=== PATIENT | male | born 1940 | race Caucasian/White ===

== ENCOUNTER 2017-01-02 15:46 | Emergency (ER) | payer OTHER, BC ==
--- NOTE | 2017-01-02 15:51 | EDPHY ---
H & P HPI/ROS: CHIEF COMPLAINT: Suicidal Ideation, M1 Hold HISTORY OF PRESENT ILLNESS: The patient is a deaf 76 year male arriving today via EMS from [facility] on an M1 hold for suicidal ideation. Per EMS, he wrote down that he was unhappy and had plans to take his life. M1 paperwork states he was on his way to the bus station and had made threats to staff at [facility] to take the bus to [place] where he could access a gun in order to kill himself. Staff reported he has threatened cutting his wrists, throat, and stomach as well. [facility] staff at bedside reports he has had intermittent depression and suicidal threats since arriving at [facility]. He has a history of depression, possible dementia, and COPD. HPI partially obtained by multi slide machine tender (commercial credit officer at [facility]) and from M1 paperwork. REVIEW OF SYSTEMS: Constitutional: No fever, no chills Eyes: No visual changes ENT: No sore throat Respiratory: No cough, no shortness of breath Cardiac: No chest pain Gastrointestinal: No nausea, no vomiting, no abdominal pain Genitourinary: No hematuria, no dysuria Musculoskeletal: No leg pain or swelling Skin: No rash Neurological: No headache, no numbness, no weakness Psychiatric: As in HPI Past Medical/Surgical History: COPD, Depression, Deaf, Hypertension (unclear if currently taking medication). Social History: Lives at [facility]. Daughters live in [place] and [place]. Has never smoked. Physical Exam: General Appearance: Alert, no distress Eyes: Pupils equal and round, no conjunctival pallor or injection ENT, Mouth: Deaf, Mucous membranes moist Neck: Normal inspection Respiratory: Lungs are clear to auscultation Cardiovascular: Regular rate and rhythm Gastrointestinal: Abdomen is soft and non- tender Neurological: A&O, nonfocal, normal gait Skin: Warm and dry, no rash Extremities: Nontender, no pedal edema Psychiatric: Appears angry Constitutional: Initial Vital Signs Temperature (C) 36.9 C 01/02/17 15:56 Heart Rate 78 01/02/17 15:56 Respiratory Rate 16 01/02/17 15:56 Blood Pressure 171/100 H 01/02/17 15:56 O2 Sat (%) 94 01/02/17 15:56 O2 Delivery Mode Room Air Allergies/Adverse Reactions: No Known Allergies Allergy (Verified 01/02/17 15:55) Home Medications: Medication Instructions Recorded 2 Htn Medicines 01/25/11 Prostate Med 01/25/11 Tamsulosin HCl [Flomax] mg PO DAILY8 01/25/11 Medical Decision Making ED Course/Re-evaluation: 15:48 Took EMS report at bedside. This is a deaf 76 year old male on M1 hold for suicidal ideation. Police placed him on M1 hold when he was found at a bus stop, reportedly planning to travel to [place] to acquire a gun and shoot himself. [facility] staff reports he has made suicidal statements often for years, but has no prior attempts. On presentation he appears angry, but is otherwise alert and stable. Denies SI. Will proceed with labs and UA for medical clearance prior to mental health evaluation. multi slide machine tender en route. Labs obtained. Hypokalemic at 3.1 Will administer 20 meq PO KCl. Tox screen was negative. Plan to proceed with mental evaluation. fur floor worker on staff feels that the patient is not acutely suicidal and is stable for discharge back to [facility]. I agree with this. The patient will be removed from M1 hold at 17:30. The patient was discharged back to [facility] with strict return precautions and instructions for mental health follow-up. Differential Diagnosis: The differential diagnosis for the patient's depression included but was not limited to functional and major depression, situational depression, medication side effect, drugs, and alcohol abuse. - Data Points Laboratory Results: Laboratory Results 01/02/17 16:35 01/02/17 16:35 01/02/17 01/02/17 01/02/17 16:35 16:35 16:14 WBC 8.91 10^3/uL 10^3/uL (3.80-9.50) RBC 4.69 10^6/uL 10^6/uL (4.40-6.38) Hgb 14.3 g/dL g/dL (13.7-17.5) Hct 42.3 % % (40.0-51.0) MCV 90.2 fL fL (81.5-99.8) MCH 30.5 pg pg (27.9-34.1) MCHC 33.8 g/dL g/dL (32.4-36.7) RDW 14.1 % % (11.5-15.2) Plt Count 171 10^3/uL 10^3/uL (150-400) MPV 10.1 fL fL (8.7-11.7) Neut % (Auto) 72.0 % % (39.3-74.2) Lymph % (Auto) 16.4 % % (15.0-45.0) [place] % (Auto) 7.4 % % (4.5-13.0) Eos % (Auto) 2.9 % % (0.6-7.6) Baso % (Auto) 1.0 % % (0.3-1.7) Nucleat RBC Rel Count 0.0 % % (0.0-0.2) Absolute Neuts (auto) 6.41 10^3/uL 10^3/uL (1.70-6.50) Absolute Lymphs (auto) 1.46 10^3/uL 10^3/uL (1.00-3.00) Absolute Monos (auto) 0.66 10^3/uL 10^3/uL (0.30-0.80) Absolute Eos (auto) 0.26 10^3/uL 10^3/uL (0.03-0.40) Absolute Basos (auto) 0.09 10^3/uL 10^3/uL (0.02-0.10) Absolute Nucleated RBC 0.00 10^3/uL 10^3/uL (0-0.01) Immature Gran % 0.3 % % (0.0-1.1) Immature Gran # 0.03 10^3/uL 10^3/uL (0.00-0.10) Sodium 143 mEq/L mEq/L (134-144) Potassium 3.1 mEq/L L mEq/L (3.5-5.2) Chloride 107 mEq/L mEq/L (97-110) Carbon Dioxide 25 mEq/l mEq/l (22-31) Anion Gap 11 mEq/L mEq/L (8-16) BUN 25 mg/dL H mg/dL (7-23) Creatinine 1.2 mg/dL mg/dL (0.7-1.3) Estimated GFR 59 Glucose 114 mg/dL H mg/dL (70-100) Calcium 9.8 mg/dL mg/dL (8.5-10.4) Urine Opiates Screen NEGATIVE (NEGATIVE) Urine Barbiturates NEGATIVE (NEGATIVE) Ur Phencyclidine Scrn NEGATIVE (NEGATIVE) Ur Amphetamine Screen NEGATIVE (NEGATIVE) U Benzodiazepines Scrn NEGATIVE (NEGATIVE) Urine Cocaine Screen NEGATIVE (NEGATIVE) U Marijuana (THC) Screen NEGATIVE (NEGATIVE) Ethyl Alcohol < 10 mg/dL mg/dL (0-10) Medications Given: Discontinued Medications Potassium Chloride (Klor-Con) 20 meq PO EDNOW ONE Stop: 01/02/17 17:10 Last Admin: 01/02/17 17:48 Dose: Not Given Departure - Departure Disposition: Home, Routine, Self-Care Clinical Impression: Suicidal ideation Condition: Good Instructions: Depression (ED), Suicide Prevention for Older Adults (ED) Additional Instructions: 1. Return to the Emergency Department if you feel as though you might hurt yourself or others, feel anxious, or for other serious concerns. Referrals: RASHID BEAULIEU [Primary Care Provider] - As per Instructions Report Scribed for: Shira De Santiago Report Scribed by: Subha Robbins Date of Report: 01/02/17 Time of Report: 16:08 Physician Review and Approval Statement: 01/02/17 16:13 Portions of this note were transcribed by a medical records custodian. I personally performed a history, physical exam, medical decision making, and confirmed accuracy of information the transcribed note.
[2017-01-02 16:04] VITALS: TEMP 98.4; O2SAT 94
[2017-01-02 16:48] LABS: % IMMATURE GRANULYOCYTES 0.3 % (0.0-1.1); ABSOLUTE IMMATURE GRANULOCYTES 0.03 10^3/uL (0.00-0.10); ADD DIFF? NO; ADD MORPH? NO; ADD SCAN? NO; ATYPICAL LYMPHOCYTE FLAG 20 (0-99); FRAGMENT RBC FLAG 0 (0-99); HEMATOCRIT 42.3 % (40.0-51.0); HEMOGLOBIN 14.3 g/dL (13.7-17.5); LEFT SHIFT FLG 0 (0-99); LIPEMIA HEMOLYSIS FLAG 90 (0-99); MEAN CELL HEMOGLOBIN 30.5 pg (27.9-34.1); MEAN CELL HEMOGLOBIN CONCENTR. 33.8 g/dL (32.4-36.7); MEAN CELL VOLUME 90.2 fL (81.5-99.8); MEAN PLATELET VOLUME 10.1 fL (8.7-11.7); PLATELET CLUMPS FLAG 0 (0-99); PLATELET COUNT 171 10^3/uL (150-400); RED BLOOD CELL COUNT 4.69 10^6/uL (4.40-6.38); RED CELL DISTRIBUTION WIDTH 14.1 % (11.5-15.2)
[2017-01-02 17:02] LABS: ANION GAP 11 mEq/L (8-16); CALCIUM 9.8 mg/dL (8.5-10.4); CARBON DIOXIDE 25 mEq/l (22-31); CHLORIDE 107 mEq/L (97-110); CREATININE 1.2 mg/dL (0.7-1.3); ETHANOL SERUM < 10 mg/dL (0-10); GLOMERULAR FILTRATION RATE 59; GLUCOSE 114 mg/dL (70-100); POTASSIUM 3.1 mEq/L (3.5-5.2); SODIUM 143 mEq/L (134-144)
[2017-01-02] MEDS ORDERED: POTASSIUM CL 20 MEQ TAB PO ONE (17:09)
[2017-01-02 18:02] VITALS: BP 150/90; PULSE 80; RESP 14
== END 2017-01-02 18:01 | disposition home or self-care (01) ==
LOC: EDUNIT#
DX: R45.851 Suicidal ideations (principal); J44.9 Chronic obstructive pulmonary disease, unspecified; I10 Essential (primary) hypertension
CPT/HCPCS: 80305; G0480

== ENCOUNTER 2017-04-07 09:20 | Emergency (ER) | payer BC, OTHER ==
[2017-04-07] MEDS ORDERED: LIDOCAINE 2% JELLY 20 ML (UROJECT) ONE (09:52)
--- NOTE | 2017-04-07 09:52 | EDPHY ---
HPI/HX/ROS/PE/MDM Narrative: CHIEF COMPLAINT: Urinary retention HISTORY OF PRESENT ILLNESS: The patient is a [id number] 77 y/o male arriving from [facility], who presents with urinary retention since last night. He has a history of BPH and has required catheterization in the past. The last time he urinated was before he went to bed last night. He has suprapubic pain that is aggravated by lying down and mildly alleviated while standing. He denies vomiting and fever. History obtained via writing as well as interior design program chair. REVIEW OF SYSTEMS: Limitied dure to initial communication barrier. PAST MEDICAL HISTORY: COPD, dementia, hypertension, GERD, BPH, depression SOCIAL HISTORY: Resides at [facility], [place] and Medicaid, PCP: Dr. Aissatou Leon Prior medical records reviewed including [facility] paperwork that was transported with patient today. VITAL SIGNS: Reviewed by me GENERAL: Elderly, thin, standing, in obvious discomfort, and non-verbal. HEENT: Atraumatic. Eyes: No icterus, no injection. Mouth: moist mucous membranes. No erythema or lesions. Neck: supple with no adenopathy. LUNGS: Clear to auscultation bilaterally, no wheezes, rhonchi or rales. CARDIAC: Irregular rate and rhythm, no rubs, murmurs or gallops. ABDOMEN: Tenderness and distension over bladder, soft, bowel sounds normal. No guarding or rebound. Bladder palpable above pubic symphysis. BACK: No CVA tenderness. EXTREMITIES: No trauma. No edema. Range of motion is normal throughout. NEURO: Alert and able to follow commands and write, grossly nonfocal. SKIN: Warm and dry, no rash. PSYCHIATRIC: Normal mentation, no agitation. Portions of this note were transcribed by a biomedical service engineer. I personally performed a history, physical exam, medical decision making, and confirmed accuracy of information the transcribed note. ED Course: The patient is a 77 y/o male who presents with a one day history of urinary retention. Plan on a catheter to empty bladder and UA, patient agrees to catheter. interior design program chair is on her way. [id number]: Reassessed patient and discussed work up. He is feeling significantly improved. His UA indicates possible UTI so he will be discharged with Keflex. I' ve recommended keeping the catheter in place until follow up with a urologist in 1-2 days. He agrees to this follow up plan. Return precautions given. interior design program chair present to discuss workup as well as my recommendations and to answer his questions. MDM: diff dx for patients urinary retention was considered including UTI, BPH, medication effects, bladder outlet pathology, renal failure. - Data Points Laboratory Results: Laboratory Results 04/07/17 09:30 04/07/17 09:30 Medications Given: Discontinued Medications Cephalexin HCl (Keflex) 500 mg PO EDNOW ONE PRN Reason: Protocol Stop: 04/07/17 12:16 Last Admin: 04/07/17 12:26 Dose: 500 mg Microbiology Results: MICROBIOLOGY 04/07/17 11:30 Urine,Clean Catch Urine Culture - Final General Time Seen by Provider: 04/07/17 09:44 Initial Vital Signs: Initial Vital Signs Temperature (C) 37 C 04/07/17 09:20 Heart Rate 88 04/07/17 09:20 Respiratory Rate 19 04/07/17 09:20 Blood Pressure 169/102 H 04/07/17 09:20 O2 Sat (%) 92 04/07/17 09:20 O2 Delivery Mode Room Air Allergies/Adverse Reactions: No Known Allergies Allergy (Verified 01/02/17 15:55) Home Medications: Medication Instructions Recorded 2 Htn Medicines 01/25/11 Prostate Med 01/25/11 Tamsulosin HCl [Flomax] mg PO DAILY8 01/25/11 Cephalexin [Keflex (RX)] 500 mg PO TID 6 Days 04/07/17 Departure - Departure Disposition: Home, Routine, Self-Care Clinical Impression: Urinary retention Condition: Good Instructions: Urinary Retention in Men (ED), Martinez Catheter Placement and Care (ED) Additional Instructions: 1. Keep your Martinez catheter in place until follow up with urologist. 2. Follow up with your urologist within the next two days. You've been referred to Dr. Webb if needed. 3. Return to the ED for severe pain, inability to empty your bladder, fever, or other worsening symptoms. 4. Take Keflex as prescribed. Be sure to complete entire prescription. Referrals: Patient,NotPresent [Unknown] - As per Instructions Hiram Webb MD [Medical Doctor] - As per Instructions Prescriptions: Cephalexin [Keflex (RX)] 500 mg PO TID 6 Days Report Scribed for: Cary Garcia Report Scribed by: Dana Stevenson Date of Report: 04/07/17 Time of Report: 10:05
[2017-04-07 10:15] VITALS: O2SAT 92
[2017-04-07 10:55] LABS: % IMMATURE GRANULYOCYTES 0.5 % (0.0-1.1); ABSOLUTE IMMATURE GRANULOCYTES 0.07 10^3/uL (0.00-0.10); ADD DIFF? NO; ADD MORPH? NO; ADD SCAN? NO; ATYPICAL LYMPHOCYTE FLAG 0 (0-99); FRAGMENT RBC FLAG 0 (0-99); HEMATOCRIT 45.8 % (40.0-51.0); HEMOGLOBIN 15.5 g/dL (13.7-17.5); LEFT SHIFT FLG 0 (0-99); LIPEMIA HEMOLYSIS FLAG 90 (0-99); MEAN CELL HEMOGLOBIN 30.8 pg (27.9-34.1); MEAN CELL HEMOGLOBIN CONCENTR. 33.8 g/dL (32.4-36.7); MEAN CELL VOLUME 91.1 fL (81.5-99.8); MEAN PLATELET VOLUME 10.8 fL (8.7-11.7); PLATELET CLUMPS FLAG 10 (0-99); PLATELET COUNT 212 10^3/uL (150-400); RED BLOOD CELL COUNT 5.03 10^6/uL (4.40-6.38); RED CELL DISTRIBUTION WIDTH 13.6 % (11.5-15.2)
[2017-04-07 10:59] LABS: ANION GAP 17 mEq/L (8-16); CARBON DIOXIDE 21 mEq/l (22-31); CHLORIDE 106 mEq/L (97-110); CREATININE 1.1 mg/dL (0.7-1.3); GLOMERULAR FILTRATION RATE > 60; GLUCOSE 151 mg/dL (70-100); POTASSIUM 3.6 mEq/L (3.5-5.2); SODIUM 144 mEq/L (134-144)
[2017-04-07 11:51] LABS: COLOR RED; LEUKOCYTE ESTERASE,URINE NEGATIVE (NEGATIVE); NITRITE,URINE NEGATIVE (NEGATIVE)
[2017-04-07 11:56] LABS: MUCUS TRACE /lpf (NONE-1+); RBC,URINE 50-182 /hpf (0-3)
[2017-04-07] MEDS ORDERED: CEPHALEXIN 500 MG CAP PO ONE (12:15)
[2017-04-07 13:37] VITALS: BP 145/76; PULSE 78; RESP 16; TEMP 97.9
== END 2017-04-07 13:35 | disposition home or self-care (01) ==
LOC: EDUNIT#
DX: R33.9 Retention of urine, unspecified (principal); I10 Essential (primary) hypertension; J44.9 Chronic obstructive pulmonary disease, unspecified

== ENCOUNTER 2017-05-21 19:25 | Emergency (ER) | payer OTHER ==
--- NOTE | 2017-05-21 19:31 | EDPHY ---
H & P Time Seen by Provider: 05/21/17 19:28 HPI/ROS: CHIEF COMPLAINT: Mild confusion HISTORY OF PRESENT ILLNESS: The patient presents to the emergency department via paramedics from [facility] with a reported history of increasing confusion and mild agitation. The patient is deaf. Patient also has a history of mild dementia. In reviewing his records he was seen in the emergency department approximately 6 weeks ago with a similar presentation. At that point time he was noted to have a possible urinary tract infection however his urine culture demonstrated no obvious bacterial growth. There has been no history of fever, vomiting, diarrhea, acute trauma or other significant abnormality reported to nursing staff by paramedics. REVIEW OF SYSTEMS: A comprehensive 10 point review of systems is otherwise negative aside from elements mentioned in the history of present illness. Source: Patient, Old records Exam Limitations: Clinical condition - Medical/Surgical History Hx Asthma: No Hx Chronic Respiratory Disease: No Hx Diabetes: No Hx Cardiac Disease: No Hx Renal Disease: No Hx Cirrhosis: No Hx Alcoholism: No Hx HIV/AIDS: No Hx Splenectomy or Spleen Trauma: No Other PMH: HTN, early dementia and pt is deaf - Social History Smoking Status: Heavy smoker - Physical Exam Exam: General Appearance: Elderly male, no acute distress Eyes: Pupils equal and round no pallor or injection ENT, Mouth: Dry mucous membranes Respiratory: There are no retractions, lungs are clear to auscultation Cardiovascular: Regular rate and rhythm Gastrointestinal: Abdomen is soft and nontender, no masses, bowel sounds normal Neurological: 5/5 strength noted all 4 extremities, chronically deaf Skin: Warm and dry, no rashes Musculoskeletal: Neck is supple nontender Extremities: symmetrical, full range of motion Psychiatric: Cooperative, non agitated Constitutional: Initial Vital Signs Temperature (C) 36.9 C 05/21/17 19:54 Heart Rate 93 05/21/17 19:54 Respiratory Rate 18 05/21/17 19:54 Blood Pressure 153/77 H 05/21/17 19:54 O2 Sat (%) 93 05/21/17 19:54 O2 Delivery Mode Room Air Allergies/Adverse Reactions: No Known Allergies Allergy (Verified 01/02/17 15:55) Home Medications: Medication Instructions Recorded 2 Htn Medicines 01/25/11 Prostate Med 01/25/11 Tamsulosin HCl [Flomax] mg PO DAILY8 01/25/11 Cephalexin [Keflex (RX)] 500 mg PO TID 6 Days cap 04/07/17 Medical Decision Making ED Course/Re-evaluation: Through the use of a tool and die designer the patient informs me that he was agitated with staff that he could not receive a meal at his [facility] facility. The patient was given a meal in the emergency department and is feeling much better. He would like to be discharged back to his SNF. The patient has stable vital signs. His urine dipstick demonstrates no evidence of an acute infection. The patient's CBC and serum chemistries are within normal limits. At this point time I doubt the patient is presenting with acute delirium or psychosis. I do feel the patient can be discharged back to his [facility] facility. Differential Diagnosis: Differential diagnosis considered includes urinary tract infection, dehydration , metabolic abnormality, psychosis, delirium - Data Points Laboratory Results: Laboratory Results 05/21/17 19:52 05/21/17 19:52 05/21/17 05/21/17 05/21/17 19:52 19:52 19:52 WBC 8.47 10^3/uL 10^3/uL (3.80-9.50) RBC 4.77 10^6/uL 10^6/uL (4.40-6.38) Hgb 14.9 g/dL g/dL (13.7-17.5) Hct 43.8 % % (40.0-51.0) MCV 91.8 fL fL (81.5-99.8) MCH 31.2 pg pg (27.9-34.1) MCHC 34.0 g/dL g/dL (32.4-36.7) RDW 14.5 % % (11.5-15.2) Plt Count 163 10^3/uL 10^3/uL (150-400) MPV 9.9 fL fL (8.7-11.7) Neut % (Auto) 72.3 % % (39.3-74.2) Lymph % (Auto) 18.3 % % (15.0-45.0) [place] % (Auto) 8.0 % % (4.5-13.0) Eos % (Auto) 0.4 % L % (0.6-7.6) Baso % (Auto) 0.6 % % (0.3-1.7) Nucleat RBC Rel Count 0.0 % % (0.0-0.2) Absolute Neuts (auto) 6.13 10^3/uL 10^3/uL (1.70-6.50) Absolute Lymphs (auto) 1.55 10^3/uL 10^3/uL (1.00-3.00) Absolute Monos (auto) 0.68 10^3/uL 10^3/uL (0.30-0.80) Absolute Eos (auto) 0.03 10^3/uL 10^3/uL (0.03-0.40) Absolute Basos (auto) 0.05 10^3/uL 10^3/uL (0.02-0.10) Absolute Nucleated RBC 0.00 10^3/uL 10^3/uL (0-0.01) Immature Gran % 0.4 % % (0.0-1.1) Immature Gran # 0.03 10^3/uL 10^3/uL (0.00-0.10) Sodium 142 mEq/L mEq/L (134-144) Potassium 3.6 mEq/L mEq/L (3.5-5.2) Chloride 104 mEq/L mEq/L (97-110) Carbon Dioxide 25 mEq/l mEq/l (22-31) Anion Gap 13 mEq/L mEq/L (8-16) BUN 32 mg/dL H mg/dL (7-23) Creatinine 1.2 mg/dL mg/dL (0.7-1.3) Estimated GFR 58 Glucose 104 mg/dL H mg/dL (70-100) Calcium 10.0 mg/dL mg/dL (8.5-10.4) Urine Color YELLOW Urine Appearance CLEAR Urine pH 6.0 (5.0-7.5) Ur Specific [place] 1.015 (1.002-1.030) Urine Protein 1+ H (NEGATIVE) Urine Ketones NEGATIVE (NEGATIVE) Urine Blood NEGATIVE (NEGATIVE) Urine Nitrate NEGATIVE (NEGATIVE) Urine Bilirubin NEGATIVE (NEGATIVE) Urine Urobilinogen NEGATIVE EU EU (0.2-1.0) Ur Leukocyte Esterase NEGATIVE (NEGATIVE) Urine RBC 3-5 /hpf H /hpf (0-3) Urine WBC 1-3 /hpf /hpf (0-3) Ur Epithelial Cells TRACE /lpf /lpf (NONE-1+) Urine Glucose NEGATIVE (NEGATIVE) Departure - Departure Disposition: Home, Routine, Self-Care Clinical Impression: Dementia Condition: Good Instructions: Dementia (ED) Additional Instructions: 1. Please return to the emergency department for any fever, vomiting, pain or other concerns. 2. Please follow up with your primary care provider as scheduled. 3. The testing in the emergency department today demonstrates no evidence of urinary retention or a urinary tract infection. Your laboratory tests including CBC and serum chemistries are within normal limits. Referrals: Patient,NotPresent [Unknown] - As per Instructions
[2017-05-21 19:56] VITALS: TEMP 98.4
[2017-05-21 20:03] LABS: % IMMATURE GRANULYOCYTES 0.4 % (0.0-1.1); ABSOLUTE IMMATURE GRANULOCYTES 0.03 10^3/uL (0.00-0.10); ADD DIFF? NO; ADD MORPH? NO; ADD SCAN? NO; ATYPICAL LYMPHOCYTE FLAG 0 (0-99); COLOR YELLOW; FRAGMENT RBC FLAG 0 (0-99); HEMATOCRIT 43.8 % (40.0-51.0); HEMOGLOBIN 14.9 g/dL (13.7-17.5); LEFT SHIFT FLG 0 (0-99); LEUKOCYTE ESTERASE,URINE NEGATIVE (NEGATIVE); LIPEMIA HEMOLYSIS FLAG 90 (0-99); MEAN CELL HEMOGLOBIN 31.2 pg (27.9-34.1); MEAN CELL VOLUME 91.8 fL (81.5-99.8); MEAN PLATELET VOLUME 9.9 fL (8.7-11.7); NITRITE,URINE NEGATIVE (NEGATIVE); PLATELET CLUMPS FLAG 10 (0-99); PLATELET COUNT 163 10^3/uL (150-400); RED BLOOD CELL COUNT 4.77 10^6/uL (4.40-6.38); RED CELL DISTRIBUTION WIDTH 14.5 % (11.5-15.2)
[2017-05-21 20:13] LABS: ANION GAP 13 mEq/L (8-16); CARBON DIOXIDE 25 mEq/l (22-31); CHLORIDE 104 mEq/L (97-110); CREATININE 1.2 mg/dL (0.7-1.3); GLOMERULAR FILTRATION RATE 58; GLUCOSE 104 mg/dL (70-100); POTASSIUM 3.6 mEq/L (3.5-5.2); SODIUM 142 mEq/L (134-144)
[2017-05-21 20:56] VITALS: BP 155/88; PULSE 78; RESP 20; O2SAT 94
== END 2017-05-21 21:29 | disposition home or self-care (01) ==
LOC: EDUNIT#
DX: F03.90 Unspecified dementia, unspecified severity, without behavioral disturbance, psychotic disturbance, mood disturbance, and anxiety (principal); F17.200 Nicotine dependence, unspecified, uncomplicated; I10 Essential (primary) hypertension

== ENCOUNTER 2017-06-12 16:16 | Inpatient (IN) | payer OTHER ==
--- NOTE | 2017-06-12 16:27 | EDPHY ---
H & P Time Seen by Provider: 06/12/17 16:25 HPI/ROS: CHIEF COMPLAINT: Fell twice today HISTORY OF PRESENT ILLNESS: Patient is a resident of [facility] with a history of dementia and prostatic hypertrophy. He is brought in today because he fell twice. Patient is deaf and communicates by writing. He currently has no complaints. He specifically denies any pain, cough, shortness of breath, abdominal pain or vomiting or diarrhea. REVIEW OF SYSTEMS: Further history and review of systems is limited by the patient's deafness, but generally denies any medical complaints or traumatic injury. PAST MEDICAL HISTORY: Includes dementia, prostatic hypertrophy, hypertension, COPD, GERD Social history: [facility] resident General Appearance: Alert and conversant, cooperative. Eyes: No scleral icterus. ENT, Mouth: Normal mucous membranes. Respiratory: Normal respiratory effort, breath sounds equal, lungs are clear to auscultation. Cardiovascular: Regular rate and rhythm. Gastrointestinal: Abdomen is soft and non tender. Neurological: Patient is alert and follows commands. Communicates by writing. Face symmetric, normal movement and sensation in all extremities. Skin: Warm and dry, no rashes. Musculoskeletal: No spinal or extremity tenderness or deformity. No external evidence of head trauma. Psychiatric: Not agitated, but unable because he is nonverbal. Emergency Department course/MDM: Temperature 37.9degrees. Labs, lactate, urinalysis, chest x-ray. Discussed with Dr. Martinez at 1656, [facility]. She requests keep at [facility] for admission tonight, admission for IV antibiotics with UTI and new gait instability. 1725: Head CT negative for trauma per Wagner, chest x-ray negative for pneumonia personally reviewed by myself. Sepsis but not severe sepsis. IV fluids and ceftriaxone 1g, observation admission. Patient is prescribed Klonopin, 0.5 mg orally and 5 mg oral Zyprexa. Right now he is alert and ambulatory and a little bit agitated. I think he has clear dementia and although he seems upset about admission I do not think he has capacity to make decisions about being discharged and he is full cor. Smoking Status: Heavy smoker Constitutional: Initial Vital Signs Temperature (C) 37.8 C 06/12/17 17:20 Heart Rate 87 06/12/17 17:20 Respiratory Rate 16 06/12/17 17:20 Blood Pressure 158/91 H 06/12/17 17:20 O2 Sat (%) 92 06/12/17 17:20 O2 Delivery Mode Room Air Allergies/Adverse Reactions: iodine Allergy (Verified 06/12/17 17:47) Home Medications: Medication Instructions Recorded Acetaminophen [Tylenol 325mg (*)] 650 mg PO Q6 PRN 06/12/17 Albuterol [Proventil Inhaler HFA 2 puffs IH Q4H PRN 06/12/17 (*)] Cholecalciferol Vit D3 [Vitamin D3 1,000 units PO DAILY 06/12/17 (*)] Escitalopram Oxalate [Lexapro] 10 mg PO DAILY 06/12/17 Finasteride [Proscar 5 MG (*)] 5 mg PO DAILY 06/12/17 Propranolol HCl 80 mg PO BID 06/12/17 SUMAtriptan [Imitrex 50 MG (*)] 50 mg PO DAILY PRN 06/12/17 Sennosides [Senokot 8.6mg (OTC)] 1 each PO BID PRN 06/12/17 Tiotropium Inhaler [Spiriva 1 inh IH DAILY 06/12/17 Inhaler] clonazePAM [Klonopin (*)] 0.5 mg PO HS 06/12/17 clonazePAM [Klonopin (*)] 0.5 mg PO Q8 PRN 06/12/17 traZODone [traZODONE 50MG (*)] 50 mg PO HS 06/12/17 Medical Decision Making - Diagnostics Imaging Results: Imaging Impressions Chest X-Ray 06/12/17 16:25 Impression: There is no focal infiltrate identified. Head CT 06/12/17 16:28 Impression:1. No acute posttraumatic abnormality identified. 2. Severe cerebral atrophy with extensive likely chronic white matter disease and multiple old lacunes. Results called and discussed with ISSAC SAHNI, at 06/12/2017 17:24 General information for patients regarding this examination can be found at [email or web address]. If you have questions or comments about this report, please contact me at [phone] (hospital) or [phone] (cell). Differential Diagnosis: Differential for fever and falling considered including but not limited to pneumonia, UTI, influenza, sepsis. Consult/Admit Bed Type: [place] [id number] - Data Points Laboratory Results: Laboratory Results 06/12/17 17:00 06/12/17 17:00 06/12/17 06/12/17 06/12/17 17:00 17:00 17:00 WBC 20.01 10^3/uL H 10^3/uL (3.80-9.50) RBC 4.81 10^6/uL 10^6/uL (4.40-6.38) Hgb 15.0 g/dL g/dL (13.7-17.5) Hct 43.6 % % (40.0-51.0) MCV 90.6 fL fL (81.5-99.8) MCH 31.2 pg pg (27.9-34.1) MCHC 34.4 g/dL g/dL (32.4-36.7) RDW 14.2 % % (11.5-15.2) Plt Count 159 10^3/uL 10^3/uL (150-400) MPV 10.3 fL fL (8.7-11.7) Neut % (Auto) 87.3 % H % (39.3-74.2) Lymph % (Auto) 5.3 % L % (15.0-45.0) [place] % (Auto) 6.7 % % (4.5-13.0) Eos % (Auto) 0.0 % L % (0.6-7.6) Baso % (Auto) 0.3 % % (0.3-1.7) Nucleat RBC Rel Count 0.0 % % (0.0-0.2) Absolute Neuts (auto) 17.45 10^3/uL H 10^3/uL (1.70-6.50) Absolute Lymphs (auto) 1.06 10^3/uL 10^3/uL (1.00-3.00) Absolute Monos (auto) 1.35 10^3/uL H 10^3/uL (0.30-0.80) Absolute Eos (auto) 0.01 10^3/uL L 10^3/uL (0.03-0.40) Absolute Basos (auto) 0.06 10^3/uL 10^3/uL (0.02-0.10) Absolute Nucleated RBC 0.00 10^3/uL 10^3/uL (0-0.01) Immature Gran % 0.4 % % (0.0-1.1) Immature Gran # 0.08 10^3/uL 10^3/uL (0.00-0.10) PT 15.1 SEC H SEC (12.0-15.0) INR 1.19 H (0.83-1.16) APTT 33.7 SEC SEC (23.0-38.0) VBG Lactic Acid Sodium 142 mEq/L mEq/L (134-144) Potassium 3.7 mEq/L mEq/L (3.5-5.2) Chloride 106 mEq/L mEq/L (97-110) Carbon Dioxide 25 mEq/l mEq/l (22-31) Anion Gap 11 mEq/L mEq/L (8-16) BUN 34 mg/dL H mg/dL (7-23) Creatinine 1.2 mg/dL mg/dL (0.7-1.3) Estimated GFR 58 Glucose 132 mg/dL H mg/dL (70-100) Calcium 9.8 mg/dL mg/dL (8.5-10.4) Total Bilirubin 1.3 mg/dL mg/dL (0.1-1.4) Urine Color Urine Appearance Urine pH Ur Specific [place] Urine Protein Urine Ketones Urine Blood Urine Nitrate Urine Bilirubin Urine Urobilinogen Ur Leukocyte Esterase Urine RBC Urine WBC Ur Epithelial Cells Hyaline Casts Urine Mucus Urine Glucose 06/12/17 06/12/17 17:00 16:35 WBC RBC Hgb Hct MCV MCH MCHC RDW Plt Count MPV Neut % (Auto) Lymph % (Auto) [place] % (Auto) Eos % (Auto) Baso % (Auto) Nucleat RBC Rel Count Absolute Neuts (auto) Absolute Lymphs (auto) Absolute Monos (auto) Absolute Eos (auto) Absolute Basos (auto) Absolute Nucleated RBC Immature Gran % Immature Gran # PT INR APTT VBG Lactic Acid 0.9 mmol/L mmol/L (0.7-2.1) Sodium Potassium Chloride Carbon Dioxide Anion Gap BUN Creatinine Estimated GFR Glucose Calcium Total Bilirubin Urine Color YELLOW Urine Appearance CLEAR Urine pH 6.0 (5.0-7.5) Ur Specific [place] 1.016 (1.002-1.030) Urine Protein 1+ H (NEGATIVE) Urine Ketones NEGATIVE (NEGATIVE) Urine Blood NEGATIVE (NEGATIVE) Urine Nitrate NEGATIVE (NEGATIVE) Urine Bilirubin NEGATIVE (NEGATIVE) Urine Urobilinogen 2.0 EU H EU (0.2-1.0) Ur Leukocyte Esterase TRACE H (NEGATIVE) Urine RBC 3-5 /hpf H /hpf (0-3) Urine WBC 25-50 /hpf H /hpf (0-3) Ur Epithelial Cells TRACE /lpf /lpf (NONE-1+) Hyaline Casts 1-5 /lpf /lpf (0-1) Urine Mucus TRACE /lpf /lpf (NONE-1+) Urine Glucose NEGATIVE (NEGATIVE) Medications Given: Discontinued Medications Clonazepam (Klonopin) 0.5 mg PO EDNOW ONE Stop: 06/12/17 17:32 Last Admin: 06/12/17 18:23 Dose: 0.5 mg Ceftriaxone Sodium/Dextrose (Rocephin 1 Gm (Premix)) 50 mls @ 100 mls/hr IV EDNOW ONE PRN Reason: Protocol Stop: 06/12/17 17:56 Last Admin: 06/12/17 18:22 Dose: 50 mls Sodium Chloride (Ns) 1,000 mls @ 0 mls/hr IV EDNOW ONE; Wide Open PRN Reason: Protocol Stop: 06/12/17 17:28 Last Admin: 06/12/17 18:23 Dose: 1,000 mls Olanzapine (Zyprexa Zydis) 5 mg PO EDNOW ONE Stop: 06/12/17 17:33 Last Admin: 06/12/17 18:23 Dose: 5 mg Departure - Departure Disposition: [facility] Acute Clinical Impression: Pyelonephritis, acute Condition: Good
[2017-06-12 16:51] LABS: COLOR YELLOW; LEUKOCYTE ESTERASE,URINE TRACE (NEGATIVE); NITRITE,URINE NEGATIVE (NEGATIVE)
[2017-06-12 16:54] LABS: MUCUS TRACE /lpf (NONE-1+); WBC,URINE 25-50 /hpf (0-3)
[2017-06-12 17:18] LABS: % IMMATURE GRANULYOCYTES 0.4 % (0.0-1.1); ABSOLUTE IMMATURE GRANULOCYTES 0.08 10^3/uL (0.00-0.10); ADD DIFF? NO; ADD MORPH? NO; ADD SCAN? NO; ATYPICAL LYMPHOCYTE FLAG 0 (0-99); FRAGMENT RBC FLAG 0 (0-99); HEMATOCRIT 43.6 % (40.0-51.0); LEFT SHIFT FLG 0 (0-99); LIPEMIA HEMOLYSIS FLAG 90 (0-99); MEAN CELL HEMOGLOBIN 31.2 pg (27.9-34.1); MEAN CELL HEMOGLOBIN CONCENTR. 34.4 g/dL (32.4-36.7); MEAN CELL VOLUME 90.6 fL (81.5-99.8); MEAN PLATELET VOLUME 10.3 fL (8.7-11.7); PLATELET CLUMPS FLAG 20 (0-99); PLATELET COUNT 159 10^3/uL (150-400); RED BLOOD CELL COUNT 4.81 10^6/uL (4.40-6.38); RED CELL DISTRIBUTION WIDTH 14.2 % (11.5-15.2)
[2017-06-12 17:25] LABS: ANION GAP 11 mEq/L (8-16); BILIRUBIN,TOTAL 1.3 mg/dL (0.1-1.4); CALCIUM 9.8 mg/dL (8.5-10.4); CARBON DIOXIDE 25 mEq/l (22-31); CHLORIDE 106 mEq/L (97-110); CREATININE 1.2 mg/dL (0.7-1.3); GLOMERULAR FILTRATION RATE 58; GLUCOSE 132 mg/dL (70-100); POTASSIUM 3.7 mEq/L (3.5-5.2); SODIUM 142 mEq/L (134-144)
[2017-06-12] MEDS ORDERED: NS 1,000 ML IV ONE (17:27)
[2017-06-12 17:30] LABS: INR 1.19 (0.83-1.16); PROTIME(PATIENT) 15.1 SEC (12.0-15.0)
[2017-06-12 17:31] LABS: APTT 33.7 SEC (23.0-38.0)
[2017-06-12] MEDS ORDERED: clonazePAM 0.5 MG TAB PO ONE (17:31)
[2017-06-12] MEDS ORDERED: OLANZapine DISINTEGR 5 MG TAB PO ONE (17:32)
[2017-06-12] MEDS ORDERED: ALBUTEROL 200 PUFFS/18 GM MDI IH PRN (19:26)
[2017-06-12] MEDS ORDERED: ACETAMINOPHEN 325 MG TAB PO PRN (19:26)
[2017-06-12] MEDS ORDERED: SENNOSIDES 1 TAB PO PRN (19:26)
[2017-06-12] MEDS ORDERED: ONDANSETRON 4 MG/2 ML VIAL IVP PRN (19:30)
[2017-06-12] MEDS ORDERED: ONDANSETRON DISINTEGRATING 4 MG TAB PO PRN (19:30)
[2017-06-12] MEDS ORDERED: LORazepam 2 MG/ML INJ IVP PRN (19:30)
--- NOTE | 2017-06-12 20:17 | PDGENHP ---
History and Physical - Chief Complaint weakness/fell - History of Present Illness This is a 77 yo male from [facility] who has fallen multiple times in the past 3 days. 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 He has remained afebrile. He is slightly confused. He says he has been feeling weak lately and has fallen several times. BP stable. No tachycardia. In the E.D. UA is c/w likely acute cystitis. WBC is elevated at 20. He denies Resp sx's. He does not have abd pain. He has had some increased urinary frequency but no urgency. lactic acid was unremarkable. BMP unremarkable PMHx: -Dementia -Deafness -BPH -HTN -COPD, on RA -GERD Soc Hx: tobacco abuse disorder, lives in half-way FmHx: unknown History Information - Allergies/Home Medication List Allergies/Adverse Reactions: iodine Allergy (Verified 06/12/17 17:47) Home Medications: Acetaminophen [Tylenol 325mg (*)] 650 mg PO Q6 PRN 06/12/17 [Last Taken Unknown] Albuterol [Proventil Inhaler HFA (*)] 2 puffs IH Q4H PRN 06/12/17 [Last Taken Unknown] Cholecalciferol Vit D3 [Vitamin D3 (*)] 1,000 units PO DAILY 06/12/17 [Last Taken Unknown] Escitalopram Oxalate [Lexapro] 10 mg PO DAILY 06/12/17 [Last Taken Unknown] Finasteride [Proscar 5 MG (*)] 5 mg PO DAILY 06/12/17 [Last Taken Unknown] Propranolol HCl 80 mg PO BID 06/12/17 [Last Taken Unknown] SUMAtriptan [Imitrex 50 MG (*)] 50 mg PO DAILY PRN 06/12/17 [Last Taken Unknown] Sennosides [Senokot 8.6mg (OTC)] 1 each PO BID PRN 06/12/17 [Last Taken Unknown] Tiotropium Inhaler [Spiriva Inhaler] 1 inh IH DAILY 06/12/17 [Last Taken Unknown ] clonazePAM [Klonopin (*)] 0.5 mg PO HS 06/12/17 [Last Taken Unknown] clonazePAM [Klonopin (*)] 0.5 mg PO Q8 PRN 06/12/17 [Last Taken Unknown] traZODone [traZODONE 50MG (*)] 50 mg PO HS 06/12/17 [Last Taken Unknown] I have personally reviewed and updated: medical history, social history - Social History Smoking Status: Heavy smoker Review of Systems Review of Systems: ROS: 10pt was reviewed & negative except for what was stated in HPI & below Physical Exam Physical Exam: Temp Pulse Resp BP Pulse Ox 37.8 C 87 16 158/91 H 92 06/12/17 17:20 06/12/17 17:20 06/12/17 17:20 06/12/17 17:20 06/12/17 17:20 Constitutional: no apparent distress Eyes: PERRL, EOMI Ears, Nose, Mouth, Throat: dry mucous membranes Cardiovascular: regular rate and rhythym, no murmur, rub, or gallop Respiratory: no respiratory distress, no rales or rhonchi, clear to auscultation Gastrointestinal: normoactive bowel sounds, soft, non-tender abdomen Skin: warm Musculoskeletal: no muscle tenderness, other (no CVA tenderness) Neurologic: No AAOx3 Psychiatric: encephalopathic, anxious, No interacting appropriately, No not anxious Lab Data & Imaging Review 06/12/17 17:00 06/12/17 17:00 WBC 20.01 10^3/uL (3.80-9.50) H 06/12/17 17:00 RBC 4.81 10^6/uL (4.40-6.38) 06/12/17 17:00 Hgb 15.0 g/dL (13.7-17.5) 06/12/17 17:00 Hct 43.6 % (40.0-51.0) 06/12/17 17:00 MCV 90.6 fL (81.5-99.8) 06/12/17 17:00 MCH 31.2 pg (27.9-34.1) 06/12/17 17:00 MCHC 34.4 g/dL (32.4-36.7) 06/12/17 17:00 RDW 14.2 % (11.5-15.2) 06/12/17 17:00 Plt Count 159 10^3/uL (150-400) 06/12/17 17:00 MPV 10.3 fL (8.7-11.7) 06/12/17 17:00 Neut % (Auto) 87.3 % (39.3-74.2) H 06/12/17 17:00 Lymph % (Auto) 5.3 % (15.0-45.0) L 06/12/17 17:00 Yell % (Auto) 6.7 % (4.5-13.0) 06/12/17 17:00 Eos % (Auto) 0.0 % (0.6-7.6) L 06/12/17 17:00 Baso % (Auto) 0.3 % (0.3-1.7) 06/12/17 17:00 Nucleat RBC Rel Count 0.0 % (0.0-0.2) 06/12/17 17:00 Absolute Neuts (auto) 17.45 10^3/uL (1.70-6.50) H 06/12/17 17:00 Absolute Lymphs (auto) 1.06 10^3/uL (1.00-3.00) 06/12/17 17:00 Absolute Monos (auto) 1.35 10^3/uL (0.30-0.80) H 06/12/17 17:00 Absolute Eos (auto) 0.01 10^3/uL (0.03-0.40) L 06/12/17 17:00 Absolute Basos (auto) 0.06 10^3/uL (0.02-0.10) 06/12/17 17:00 Absolute Nucleated RBC 0.00 10^3/uL (0-0.01) 06/12/17 17:00 Immature Gran % 0.4 % (0.0-1.1) 06/12/17 17:00 Immature Gran # 0.08 10^3/uL (0.00-0.10) 06/12/17 17:00 PT 15.1 SEC (12.0-15.0) H 06/12/17 17:00 INR 1.19 (0.83-1.16) H 06/12/17 17:00 APTT 33.7 SEC (23.0-38.0) 06/12/17 17:00 VBG Lactic Acid 0.9 mmol/L (0.7-2.1) 06/12/17 17:00 Sodium 142 mEq/L (134-144) 06/12/17 17:00 Potassium 3.7 mEq/L (3.5-5.2) 06/12/17 17:00 Chloride 106 mEq/L (97-110) 06/12/17 17:00 Carbon Dioxide 25 mEq/l (22-31) 06/12/17 17:00 Anion Gap 11 mEq/L (8-16) 06/12/17 17:00 BUN 34 mg/dL (7-23) H 06/12/17 17:00 Creatinine 1.2 mg/dL (0.7-1.3) 06/12/17 17:00 Estimated GFR 58 06/12/17 17:00 Glucose 132 mg/dL (70-100) H 06/12/17 17:00 Calcium 9.8 mg/dL (8.5-10.4) 06/12/17 17:00 Total Bilirubin 1.3 mg/dL (0.1-1.4) 06/12/17 17:00 Urine Color YELLOW 06/12/17 16:35 Urine Appearance CLEAR 06/12/17 16:35 Urine pH 6.0 (5.0-7.5) 06/12/17 16:35 Ur Specific [place] 1.016 (1.002-1.030) 06/12/17 16:35 Urine Protein 1+ (NEGATIVE) H 06/12/17 16:35 Urine Ketones NEGATIVE (NEGATIVE) 06/12/17 16:35 Urine Blood NEGATIVE (NEGATIVE) 06/12/17 16:35 Urine Nitrate NEGATIVE (NEGATIVE) 06/12/17 16:35 Urine Bilirubin NEGATIVE (NEGATIVE) 06/12/17 16:35 Urine Urobilinogen 2.0 EU (0.2-1.0) H 06/12/17 16:35 Ur Leukocyte Esterase TRACE (NEGATIVE) H 06/12/17 16:35 Urine RBC 3-5 /hpf (0-3) H 06/12/17 16:35 Urine WBC 25-50 /hpf (0-3) H 06/12/17 16:35 Ur Epithelial Cells TRACE /lpf (NONE-1+) 06/12/17 16:35 Hyaline Casts 1-5 /lpf (0-1) 06/12/17 16:35 Urine Mucus TRACE /lpf (NONE-1+) 06/12/17 16:35 Urine Glucose NEGATIVE (NEGATIVE) 06/12/17 16:35 Assessment & Plan Assessment: #Acute cystitis: no e/o of pyelonephritis #Dehydration #Weakness and Deconditioning #Encephalopathy in patient with hx of demenia #Deafness #HTN #BPH Plan: -admit -overall looks stable -Provide additional IVF -Cont with Rocephin -Await cultures -PT/OT -home meds -bp is slightly elevated, will allow some permissive HTN tonight. -full code
[2017-06-12] MEDS: PROPRANOLOL HCL 40 MG TAB PO SCH (20:35)
[2017-06-12] MEDS ORDERED: PROPRANOLOL SR 80 MG CAP PO SCH (21:00)
[2017-06-13] MEDS: traZODone 50 MG TAB PO SCH ×2 (02:18→20:32)
[2017-06-13 05:39] VITALS: RESP 16
[2017-06-13 09:08] LABS: % IMMATURE GRANULYOCYTES 0.6 % (0.0-1.1); ABSOLUTE IMMATURE GRANULOCYTES 0.13 10^3/uL (0.00-0.10); ADD DIFF? NO; ADD MORPH? NO; ADD SCAN? NO; ATYPICAL LYMPHOCYTE FLAG 0 (0-99); FRAGMENT RBC FLAG 0 (0-99); HEMATOCRIT 38.1 % (40.0-51.0); HEMOGLOBIN 13.3 g/dL (13.7-17.5); LEFT SHIFT FLG 0 (0-99); LIPEMIA HEMOLYSIS FLAG 90 (0-99); MEAN CELL HEMOGLOBIN 31.9 pg (27.9-34.1); MEAN CELL HEMOGLOBIN CONCENTR. 34.9 g/dL (32.4-36.7); MEAN CELL VOLUME 91.4 fL (81.5-99.8); MEAN PLATELET VOLUME 10.4 fL (8.7-11.7); PLATELET CLUMPS FLAG 0 (0-99); PLATELET COUNT 127 10^3/uL (150-400); RED BLOOD CELL COUNT 4.17 10^6/uL (4.40-6.38); RED CELL DISTRIBUTION WIDTH 14.1 % (11.5-15.2)
[2017-06-13] MEDS: TIOTROPIUM INHALER 18 MCG/DOSE 5 DOSE/MDI IH SCH (09:13)
[2017-06-13] MEDS: FINASTERIDE 5 MG TAB PO SCH ×3 (09:20→11:47)
[2017-06-13] MEDS: NS 1,000 ML IV SCH ×2 (09:20→11:48)
[2017-06-13] MEDS: CHOLECALCIFEROL VIT D3 1,000 UNITS TAB PO SCH ×3 (09:20→11:48)
[2017-06-13 09:26] LABS: ANION GAP 12 mEq/L (8-16); CALCIUM 8.8 mg/dL (8.5-10.4); CARBON DIOXIDE 23 mEq/l (22-31); CHLORIDE 107 mEq/L (97-110); CREATININE 1.2 mg/dL (0.7-1.3); GLOMERULAR FILTRATION RATE 58; GLUCOSE 114 mg/dL (70-100); MAGNESIUM 1.9 mg/dL (1.6-2.3); POTASSIUM 3.4 mEq/L (3.5-5.2); SODIUM 142 mEq/L (134-144)
--- NOTE | 2017-06-13 09:45 | PDMN ---
Medical Necessity Medical necessity: GRG urologic disease -acute cystitis without hematuria 2 days- urologic infection req inpt care with dehydration, weakness, deconditioning, encephalopathy in pt with hx of dementia, deafness, HTN, BPH, pt is resident of SNF
[2017-06-13] MEDS: PROPRANOLOL HCL 40 MG TAB PO SCH ×3 (10:41→20:32)
--- NOTE | 2017-06-13 16:37 | ASMTCMCOM ---
CM Note CM Note Notes: Pt in from [facility] where he has lived several months according to Louann at . Pt was admitted to from [facility]. The following statements are reports from Louann at : pt is a [place] with a dghtr (lives in [place]) very involved in his care. Dghtr is overwhelmed w pt care because pt often has staff call her when he is frustrated which can be often due to communication barriers w staff. While he is currently in an open unit he may need locked eventually. Pt does not want to live in a facility but is not safe to care for himself in the community and he is not able to live w dghtr. Pt can be resistant/combative w care, that is why he may look disheveled. Pt will d/c back to [facility] when medically stable. CM to follow. Date Signed: 06/13/2017 04:37 PM Electronically Signed By:BISI King
--- NOTE | 2017-06-13 17:18 | HOSPPROG ---
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 # htn - propranolol # BPH - urinating without clinical obstruction Subjective: no acute events; no joint pain; discussed with dtrs on phone Objective: Vital Signs Temp Pulse Resp BP Pulse Ox 36.7 C 59 L 16 138/62 H 92 06/13/17 04:00 06/13/17 16:00 06/13/17 16:00 06/13/17 16:00 06/13/17 16:00 Laboratory Results 06/13/17 08:36 06/13/17 08:36 06/12/17 06/13/17 06/14/17 05:59 05:59 05:59 Intake Total 1010 Output Total 225 Balance 785 PT 15.1 SEC (12.0-15.0) H 06/12/17 17:00 INR 1.19 (0.83-1.16) H 06/12/17 17:00 CXR personally reviewed chart reviewed - Physical Exam Constitutional: no apparent distress, appears nourished Cardiovascular: regular rate and rhythym, no murmur, rub, or gallop Respiratory: no respiratory distress, no rales or rhonchi, clear to auscultation Gastrointestinal: normoactive bowel sounds, soft, non-tender abdomen, no palpable masses Skin: other (no rash, no cellulitis) Musculoskeletal: other (no joint effusions) ICD10 Worksheet Patient Problems: Problems Problem Status Onset Pyelonephritis, acute Acute
[2017-06-13] MEDS ORDERED: traZODone 50 MG TAB PO SCH (21:00)
[2017-06-14] MEDS: NS 1,000 ML IV SCH (00:23)
[2017-06-14] MEDS: CHOLECALCIFEROL VIT D3 1,000 UNITS TAB PO SCH (09:59)
[2017-06-14] MEDS: PROPRANOLOL HCL 40 MG TAB PO SCH ×2 (09:59→20:29)
[2017-06-14] MEDS: FINASTERIDE 5 MG TAB PO SCH (09:59)
[2017-06-14] MEDS: TIOTROPIUM INHALER 18 MCG/DOSE 5 DOSE/MDI IH SCH (11:30)
--- NOTE | 2017-06-14 16:08 | HOSPPROG ---
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 denies diarrhea Objective: Vital Signs Temp Pulse Resp BP Pulse Ox 37.1 C 54 L 16 176/87 H 90 L 06/14/17 12:00 06/14/17 12:00 06/14/17 12:00 06/14/17 12:00 06/14/17 12:00 Microbiology 06/12/17 Unknown Urine Culture - Final Urine,Clean Catch Laboratory Results 06/13/17 08:36 06/13/17 08:36 06/13/17 06/14/17 06/15/17 05:59 05:59 05:59 Intake Total 1010 1289 Output Total 225 Balance 785 1289 PT 15.1 SEC (12.0-15.0) H 06/12/17 17:00 INR 1.19 (0.83-1.16) H 06/12/17 17:00 - Physical Exam Constitutional: no apparent distress, appears nourished Eyes: PERRL, anicteric sclera Ears, Nose, Mouth, Throat: moist mucous membranes, hearing normal Cardiovascular: regular rate and rhythym, no murmur, rub, or gallop Respiratory: no respiratory distress, no rales or rhonchi Gastrointestinal: normoactive bowel sounds, soft, non-tender abdomen, No guarding, No rebound Genitourinary: No larose in urethra Skin: warm, normal color Musculoskeletal: full muscle strength, no muscle tenderness Neurologic: AAOx3 ICD10 Worksheet Patient Problems: Problems Problem Status Onset Pyelonephritis, acute Acute
[2017-06-14] MEDS: traZODone 50 MG TAB PO SCH (20:29)
[2017-06-15 05:39] VITALS: TEMP 98.4
[2017-06-15 08:18] VITALS: O2SAT 93
[2017-06-15] MEDS: TIOTROPIUM INHALER 18 MCG/DOSE 5 DOSE/MDI IH SCH (08:23)
[2017-06-15] MEDS: PROPRANOLOL HCL 40 MG TAB PO SCH (09:31)
[2017-06-15] MEDS: CHOLECALCIFEROL VIT D3 1,000 UNITS TAB PO SCH (09:31)
[2017-06-15] MEDS: FINASTERIDE 5 MG TAB PO SCH (09:31)
[2017-06-15 10:08] LABS: HEMATOCRIT 39.4 % (40.0-51.0); HEMOGLOBIN 13.2 g/dL (13.7-17.5); MEAN CELL HEMOGLOBIN 31.1 pg (27.9-34.1); MEAN CELL HEMOGLOBIN CONCENTR. 33.5 g/dL (32.4-36.7); MEAN CELL VOLUME 92.9 fL (81.5-99.8); RED BLOOD CELL COUNT 4.24 10^6/uL (4.40-6.38); RED CELL DISTRIBUTION WIDTH 14.2 % (11.5-15.2)
[2017-06-15 13:27] VITALS: BP 171/87; PULSE 78
--- NOTE | 2017-06-15 14:24 | HOSPPROG ---
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 ucx neg Objective: Vital Signs Temp Pulse Resp BP Pulse Ox 36.9 C 78 16 171/87 H 93 06/15/17 04:00 06/15/17 12:00 06/15/17 12:00 06/15/17 12:00 06/15/17 12:00 Microbiology 06/12/17 Unknown Urine Culture - Final Urine,Clean Catch Laboratory Results 06/15/17 09:54 06/13/17 08:36 06/14/17 06/15/17 06/16/17 05:59 05:59 05:59 Intake Total 1289 350 550 Output Total 300 Balance 1289 50 550 PT 15.1 SEC (12.0-15.0) H 06/12/17 17:00 INR 1.19 (0.83-1.16) H 06/12/17 17:00 - Physical Exam Constitutional: no apparent distress, appears nourished Eyes: PERRL, anicteric sclera Ears, Nose, Mouth, Throat: moist mucous membranes, hearing normal Cardiovascular: regular rate and rhythym, no murmur, rub, or gallop Respiratory: no respiratory distress, no rales or rhonchi Gastrointestinal: normoactive bowel sounds, soft, non-tender abdomen Genitourinary: no bladder fullness, No larose in urethra Skin: warm Musculoskeletal: full muscle strength Neurologic: AAOx3 ICD10 Worksheet Patient Problems: Problems Problem Status Onset Pyelonephritis, acute Acute
--- NOTE | 2017-06-15 14:25 | PDIAF ---
- Diagnosis Diagnosis: viral illness Code Status: Full Code - Medication Management Discharge Medications: Medications to Continue on Transfer Acetaminophen [Tylenol 325mg (*)] 650 mg PO Q6 PRN 06/12/17 [Last Taken Unknown] Albuterol [Proventil Inhaler HFA (*)] 2 puffs IH Q4H PRN 06/12/17 [Last Taken Unknown] Cholecalciferol Vit D3 [Vitamin D3 (*)] 1,000 units PO DAILY 06/12/17 [Last Taken Unknown] Escitalopram Oxalate [Lexapro] 10 mg PO DAILY 06/12/17 [Last Taken Unknown] Finasteride [Proscar 5 MG (*)] 5 mg PO DAILY 06/12/17 [Last Taken Unknown] Propranolol HCl 80 mg PO BID 06/12/17 [Last Taken Unknown] SUMAtriptan [Imitrex 50 MG (*)] 50 mg PO DAILY PRN 06/12/17 [Last Taken Unknown] Sennosides [Senokot] 1 each PO BID PRN 06/12/17 [Last Taken Unknown] Tiotropium Inhaler [Spiriva Inhaler (RX)] 1 inh IH DAILY 06/12/17 [Last Taken Unknown] clonazePAM [Klonopin (*)] 0.5 mg PO HS 06/12/17 [Last Taken Unknown] clonazePAM [Klonopin (*)] 0.5 mg PO Q8 PRN 06/12/17 [Last Taken Unknown] traZODone [traZODONE 50MG (*)] 50 mg PO HS 06/12/17 [Last Taken Unknown] Discharge Medications: Refer to the Discharge Home Medication list for PRN reason. - Orders Services needed: Registered Nurse, Physical Therapy, Occupational Therapy - Follow Up Care Current Providers and Referrals: Patient,NotPresent [Unknown] - As per Instructions
--- NOTE | 2017-06-15 15:01 | ASMTCMCOM ---
CM Note CM Note Notes: Patient has been discharged and will return to [facility]. [facility] has been contacted and they will set up a W/C transport for 3:30 with [place]. Daughter has been contacted about discharge. Date Signed: 06/15/2017 03:00 PM Electronically Signed By:Sravanthi Booker LCSW
--- NOTE | 2017-06-15 15:11 | GDS ---
[f rep st] DISCHARGE SUMMARY DISCHARGE DIAGNOSES: 1. Falls. 2. Likely viral syndrome. 3. Leukocytosis. HOSPITAL COURSE: Please see admission history and physical. The patient presented on the with some falls in a few days. He was noted to have a leukocytosis. He had a workup. This showed leukoc ytosis and a mild degree of pyuria. Blood cultures were negative. Chest x-ray, no evidence of infil trate. Soft abdominal exam. He is eating and drinking well. He did not have diarrhea. He does hav e nausea. He is not febrile and did not have an oxygen requirement. The patient received a couple days of ceftriaxone for suspected UTI. His urine culture grew out noth ing. I have discontinued his antibiotics as it is not a UTI. He is discharged home off antibiotics on his home medication regimen with physical and occupational t herapy at [facility] where he resides. /[id number]/MODL
--- NOTE | 2017-06-15 18:55 | ASDISCHSUM ---
Discharge Information Plan Status:SNF Medically Cleared to Leave:06/15/2017 Discharge Date:06/15/2017 03:21 PM CM D/C Disposition:[facility]ior Care Facility ADT D/C Disposition:Senior Care Facility Projected Discharge Date:06/15/2017 04:00 PM Transportation at D/C:Wheelchair Van Discharge Delay Reason: Follow-Up Date:06/15/2017 04:00 PM Discharge Slot:2 - 12:01 pm - 18:00 pm Final Diagnosis:Falls, weakness, viral illness Placement Information Referral Type:*Usp/SNF Referral ID:[id number] Provider Name:Immanuel Aguilar/[facility] [place] Address 1:[address] Phone Number: Address 2: Fax Number: City:[place] Selection Factors: State:[place] Patient Contact Information Contact Name:FAUSTO Relationship:Daughter Address: City: [facility] Phone: [facility]/Zip Code: Email: Financial Information Financial Class:Medicare Advantage Plans Primary Plan Desc:[employer] ADV IP Primary Plan Number:[id number] Secondary Plan Desc: Secondary Plan Number: Assessment Information LACE LACE Length of stay for Answers: Less than 1 day current admission Acuity / Level of Care Answers: Was the patient admitted to hospital via the emergency department? Yes: Comorbidities - select Answers: Dementia all that apply Emergency dept visits in Answers: 4+ last 6 months Score: 10 Date Signed: 06/12/2017 07:14 PM Electronically Signed By:Emily Price RN NATALY SCRUGGS Progress Note CM Note CM Note Notes: Pt in from [facility] where he has lived several months according to Louann at . Pt was admitted to from [facility]. The following statements are reports from Louann at : pt is a [place] with a dghtr (lives in [place]) very involved in his care. Dghtr is overwhelmed w pt care because pt often has staff call her when he is frustrated which can be often due to communication barriers w staff. While he is currently in an open unit he may need locked eventually. Pt does not want to live in a facility but is not safe to care for himself in the community and he is not able to live w dghtr. Pt can be resistant/combative w care, that is why he may look disheveled. Pt will d/c back to [facility] when medically stable. CM to follow. Date Signed: 06/13/2017 04:37 PM Electronically Signed By:BISI King [facility] CM Progress Note CM Note CM Note Notes: Patient has been discharged and will return to [facility]. [facility] has been contacted and they will set up a W/C transport for 3:30 with [facility]. Daughter has been contacted about discharge. Date Signed: 06/15/2017 03:00 PM Electronically Signed By:Sravanthi Booker LCSW Intervention Information
== END 2017-06-15 15:21 | DRG 866 ==
LOC: EDUNIT# → F3N 19:41
PROVIDERS: ADMIT Family Medicine; ATTEND Internal Medicine
DX: B34.9 Viral infection, unspecified (principal); R82.71 Bacteriuria; F03.90 Unspecified dementia, unspecified severity, without behavioral disturbance, psychotic disturbance, mood disturbance, and anxiety; F05 Delirium due to known physiological condition; H91.93 Unspecified hearing loss, bilateral; I10 Essential (primary) hypertension; J44.9 Chronic obstructive pulmonary disease, unspecified; F17.210 Nicotine dependence, cigarettes, uncomplicated; N40.0 Benign prostatic hyperplasia without lower urinary tract symptoms; K21.9 Gastro-esophageal reflux disease without esophagitis
CPT/HCPCS: 96374; 97161-GP; 97165-GO; 97535-GO; J0696

== ENCOUNTER 2017-07-09 12:22 | Inpatient (IN) | payer OTHER ==
[2017-07-09 12:47] LABS: % IMMATURE GRANULYOCYTES 0.5 % (0.0-1.1); ABSOLUTE IMMATURE GRANULOCYTES 0.07 10^3/uL (0.00-0.10); ADD DIFF? NO; ADD MORPH? NO; ADD SCAN? NO; ATYPICAL LYMPHOCYTE FLAG 0 (0-99); FRAGMENT RBC FLAG 0 (0-99); HEMATOCRIT 31.7 % (40.0-51.0); LEFT SHIFT FLG 0 (0-99); LIPEMIA HEMOLYSIS FLAG 90 (0-99); MEAN CELL HEMOGLOBIN 32.1 pg (27.9-34.1); MEAN CELL HEMOGLOBIN CONCENTR. 34.7 g/dL (32.4-36.7); MEAN CELL VOLUME 92.4 fL (81.5-99.8); MEAN PLATELET VOLUME 11.5 fL (8.7-11.7); PLATELET CLUMPS FLAG 0 (0-99); PLATELET COUNT 179 10^3/uL (150-400); RED BLOOD CELL COUNT 3.43 10^6/uL (4.40-6.38); RED CELL DISTRIBUTION WIDTH 14.4 % (11.5-15.2)
--- NOTE | 2017-07-09 13:00 | EDPHY ---
H & P Stated Complaint: AMS x2 weeks from [facility], recent falls - Medical/Surgical History Hx Asthma: No Hx Chronic Respiratory Disease: No Hx Diabetes: No Hx Cardiac Disease: No Hx Renal Disease: No Hx Cirrhosis: No Hx Alcoholism: No Hx HIV/AIDS: No Hx Splenectomy or Spleen Trauma: No Other PMH: HTN, early dementia and pt is deaf, BPH,COPD,GERD, - Social History Smoking Status: Heavy smoker Time Seen by Provider: 07/09/17 12:59 Constitutional: Initial Vital Signs Temperature (C) 37 C 07/09/17 12:28 Heart Rate 51 L 07/09/17 12:28 Respiratory Rate 18 07/09/17 12:28 Blood Pressure 93/56 L 07/09/17 12:28 O2 Sat (%) 93 07/09/17 12:28 O2 Delivery Mode Room Air O2 (L/minute) 2 Allergies/Adverse Reactions: iodine Allergy (Verified 06/12/17 17:47) Home Medications: Medication Instructions Recorded Acetaminophen [Tylenol 325mg (*)] 650 mg PO Q6 PRN 06/12/17 Albuterol [Proventil Inhaler HFA 2 puffs IH Q4H PRN 06/12/17 (*)] Cholecalciferol Vit D3 [Vitamin D3 1,000 units PO DAILY 06/12/17 (*)] Escitalopram Oxalate [Lexapro 10 10 mg PO DAILY 06/12/17 MG] Finasteride [Proscar 5 MG (*)] 5 mg PO DAILY 06/12/17 Propranolol HCl 80 mg PO BID 06/12/17 SUMAtriptan [Imitrex 50 MG (*)] 50 mg PO DAILY PRN 06/12/17 Sennosides [Senokot] 1 each PO BID PRN 06/12/17 Tiotropium Inhaler [Spiriva 1 inh IH DAILY 06/12/17 Inhaler (RX)] clonazePAM [Klonopin (*)] 0.5 mg PO Q8 PRN 06/12/17 Acetaminophen [Tylenol 325mg (*)] 650 mg PO Q4HRS PRN tab 07/11/17 Melatonin [Melatonin 3 MG (*)] 3 mg PO HS #30 tab 07/11/17 Medical Decision Making ED Course/Re-evaluation: CHIEF COMPLAINT: Altered mental status HISTORY OF PRESENT ILLNESS: This is a 77-year-old gentleman who lives at a nursing facility. He is deaf. He reportedly is having some altered mental status for 2 weeks. We have been trying to obtain a systems design engineer however the service cannot provide us an box printer until 4:30 p.m.. The patient is non verbal completely. It is very difficult for me to ascertain any information. I am simply going by the prison information at this time. REVIEW OF SYSTEMS: Unable to obtain due the patient's nonverbal status. lifestyle coordinator is on the way PHYSICAL EXAM: HR, BP, O2 Sat, RR. Temp noted General Appearance: Alert, well hydrated, appropriate, and non-toxic appearing. Head: Atraumatic without scalp tenderness or obvious injury Eyes: Pupils equal, round, reactive to light and accommodation, EOMI, no trauma , no injection. Ears: Clear bilaterally, no perforation, normal landmarks Nose: Atraumatic, no rhinorrhea, clear. Throat: There is no erythema or exudates, no lesions, normal tonsils, mucus membranes moist. Neck: Supple, 2+ carotid upstroke, nontender, no lymphadenopathy. Respiratory: No retractions, no distress, no wheezes, and no accessory muscle use. Lungs are clear to auscultation bilaterally. Cardiovascular: Regular rate and rhythm, no murmurs, rubs, or gallops. Bilateral carotid, radial, dorsalis pedis, and posterior tibial pulses intact. Good capillary refill all extremities. Gastrointestinal: Abdomen is soft, nontender, non-distended, no masses, no rebound, no guarding, no peritoneal signs. Musculoskeletal: Normal active ROM of all extremities, atraumatic. Neurological: Alert, appropriate, and interactive. The patient has normal DTRs and non-focal cranial nerves, motor, sensory, and cerebellar exam. Skin: No rashes, good turgor, no nodules on palpation. Past medical history: Unable to obtain Past surgical history: Unable to obtain Family history: Unable to obtain Social history: Lives at a nursing facility, does not use tobacco drugs or alcohol, single, not employed DIAGNOSTICS/PROCEDURES/CRITICAL CARE TIME: Study: PA and Lateral Chest X-ray Indication: altered mental status Results: After viewing the images myself on the PACS system. My interpretation of the images is: Pending DIFFERENTIAL DIAGNOSIS: The differential diagnosis for the patient's altered mental status included but was not limited to hypoglycemia, infectious process, electrolyte abnormality, head injury, neurologic process, anemia, cardiac process, and intoxicants. MEDICAL DECISION MAKING: I performed laboratory studies on this patient and a urinalysis and a chest x-ray. I am waiting for the urinalysis and check says her to come back. This patient does have an elevated white blood cell count with a left shift. He also has some prerenal dehydration with a significantly elevated BUN and creatinine a little over 2. I am hydrating the patient to see if that improves his mental status. I will sign this patient out to Dr. Salinas at change of shift awaiting the box printer to further ascertain whether not this patient is at baseline or feeling better or what his symptoms actually are. (Esteban Oshea) 162: I did take over the care of this patient from Dr. Oshea. We are waiting on a systems design engineer. We did touch base with [facility] they report that he appears more confused than his baseline and additionally he has been falling recently. Due to the falls I did elect to scan his head he did have a CT scan head without contrast that does not show anything acute specifically no subdural epidural. 183: I did go and re-evaluate the patient at this time the systems design engineer was used to converse with this patient. In conversing with the patient with systems design engineer the patient denies having any complaints. He denies chest pain or shortness of breath denies headache. He does tell me sleepy. He tells me feels fine. I did review his blood work. He does have an elevated BUN and creatinine. This is different from his baseline he did receive 2 L of fluid here in the emergency room. We will ambulate him to see how well he does walking. He is unable to walk in 2 week I have a low threshold to admit this gentleman as he 77 years old elevated BUN and creatinine he does appear dry on exam. And he is deaf. 1857: This patient did ambulate with a walker but needed assistance. His right posterior thigh is very ecchymotic. Will perform an x-ray of his right femur. Right knee. Additionally given his unsteady gait need for help with a walker, language barrier, dehydration, acute kidney injury he will be admitted to the hospitalist service for rehydration PT OT. Of note there was a delay in this patient's ER visit as he spent a large amount of time in the emergency room as we are waiting a systems design engineer to help communicate with him. This took an extensive amount of time to get the systems design engineer over 3 hours into the emergency room. EKG interpretation by me on record in We[employer] system. Impression time of EKG 1653, sinus rhythm rate of 53. Pr interval noted to be 216 first-degree AV block. No acute ischemia. Sinus Jose. 2034: Spoke with Dr. ortega hospitalist service agrees to admit this patient. Reason for admission dehydration, acute kidney injury, unstable gait. Generalized weakness. (David Salinas) - Data Points Laboratory Results: Laboratory Results 07/10/17 05:02 07/10/17 05:02 Medications Given: Discontinued Medications Acetaminophen (Tylenol) 650 mg PO Q4HRS PRN PRN Reason: Pain, Mild/Fever, Can Take PO Stop: 01/05/18 22:16 Last Admin: 07/10/17 17:42 Dose: 650 mg Cholecalciferol (Vitamin D) 1,000 units PO DAILY DYANA Stop: 01/07/18 08:59 Last Admin: 07/11/17 10:47 Dose: 1,000 units Clonazepam (Klonopin) 0.5 mg PO Q8 PRN PRN Reason: Anxiety Stop: 01/06/18 10:18 Last Admin: 07/10/17 17:42 Dose: 0.5 mg Escitalopram Oxalate (Lexapro) 10 mg PO DAILY [facility] Stop: 01/07/18 08:59 Last Admin: 07/11/17 10:48 Dose: 10 mg Fentanyl (Sublimaze) 25 mcg IVP EDNOW ONE Stop: 07/09/17 16:06 Last Admin: 07/09/17 16:06 Dose: 25 mcg Fentanyl (Sublimaze) 25 mcg IVP EDNOW ONE Stop: 07/09/17 20:22 Last Admin: 07/09/17 20:22 Dose: 25 mcg Finasteride (Proscar) 5 mg PO DAILY [facility] Stop: 01/07/18 08:59 Last Admin: 07/11/17 10:48 Dose: 5 mg Sodium Chloride (Ns) 1,000 mls @ 0 mls/hr IV EDNOW ONE; Wide Open PRN Reason: Protocol Stop: 07/09/17 14:17 Last Admin: 07/09/17 14:29 Dose: 1,000 mls Sodium Chloride (Ns) 1,000 mls @ 0 mls/hr IV EDNOW ONE; Wide Open PRN Reason: Protocol Stop: 07/09/17 14:17 Last Admin: 07/09/17 14:30 Dose: 1,000 mls Propranolol HCl (Inderal) 80 mg PO BID DYANA Stop: 01/06/18 09:14 Last Admin: 07/11/17 10:43 Dose: 80 mg Tiotropium [place] (Spiriva Handihaler) 18 mcg IH DAILY DYANA Stop: 01/07/18 08:59 Last Admin: 07/11/17 09:56 Dose: 1 puffs Departure - Departure Disposition: [facility] Acute Clinical Impression: SINA (acute kidney injury), Generalized weakness Fall Qualifiers: Encounter type: initial encounter Qualified Code(s): W19.XXXA - Unspecified fall, initial encounter Condition: Fair
[2017-07-09 13:11] LABS: ANION GAP 16 mEq/L (8-16); CALCIUM 9.1 mg/dL (8.5-10.4); CARBON DIOXIDE 26 mEq/l (22-31); CHLORIDE 104 mEq/L (97-110); CREATININE 2.1 mg/dL (0.7-1.3); GLOMERULAR FILTRATION RATE 31; GLUCOSE 115 mg/dL (70-100); POTASSIUM 3.8 mEq/L (3.5-5.2); SODIUM 146 mEq/L (134-144)
[2017-07-09 13:33] LABS: BILIRUBIN,TOTAL 1.1 mg/dL (0.1-1.4)
[2017-07-09] MEDS ORDERED: NS 1,000 ML IV ONE ×2 (14:16)
[2017-07-09 14:33] LABS: COLOR YELLOW; LEUKOCYTE ESTERASE,URINE NEGATIVE (NEGATIVE); NITRITE,URINE NEGATIVE (NEGATIVE)
[2017-07-09 14:40] LABS: MUCUS TRACE /lpf (NONE-1+)
[2017-07-09 14:41] LABS: RBC,URINE NONE SEEN /hpf (0-3)
[2017-07-09] MEDS ORDERED: fentaNYL 100 MCG/2 ML INJ ONE ×2 (15:46→20:19)
[2017-07-09] MEDS ORDERED: fentaNYL 100 MCG/2 ML INJ IVP ONE ×2 (16:05→20:21)
[2017-07-09 16:17] LABS: APTT 30.9 SEC (23.0-38.0); INR 1.26 (0.83-1.16); PROTIME(PATIENT) 15.8 SEC (12.0-15.0)
--- NOTE | 2017-07-09 16:54 | CPEKG ---
Heart Rate: 53 RR Interval: 1132 P-R Interval: 216 QRSD Interval: 102 QT Interval: 524 QTC Interval: 493 P [place]: 62 QRS [place]: 5 T Wave [place]: 64 EKG Severity - BORDERLINE ECG - EKG Impression: SINUS RHYTHM EKG Impression: ATRIAL PREMATURE COMPLEX EKG Impression: BORDERLINE PROLONGED QT INTERVAL Electronically Signed By: David Salinas 09-Jul-2017 23:29:03
[2017-07-09 19:46] LABS: ANION GAP 8 mEq/L (8-16); CALCIUM 8.4 mg/dL (8.5-10.4); CARBON DIOXIDE 27 mEq/l (22-31); CHLORIDE 111 mEq/L (97-110); CREATININE 1.6 mg/dL (0.7-1.3); GLOMERULAR FILTRATION RATE 42; GLUCOSE 115 mg/dL (70-100); POTASSIUM 3.6 mEq/L (3.5-5.2); SODIUM 146 mEq/L (134-144)
[2017-07-09] MEDS ORDERED: ONDANSETRON 4 MG/2 ML VIAL IVP PRN (22:17)
[2017-07-09] MEDS ORDERED: NS 1,000 ML IV SCH (22:30)
--- NOTE | 2017-07-09 23:29 | PDGENHP ---
History and Physical - Chief Complaint fall, confusion, generalized weakness - History of Present Illness Source - patient is deaf and limited ability to communicate. RN previously attempted writing but patient was not able to participate. per report even with industrial retrofit designer discussion was difficult and patient still appeared confused. Case discussed with accepting provider, EMR reviewed and discussed with primary RN. HPI - Pleasant 77 yo M known to our service on recent hospitalization in May 2017 for history of generalized weakness, falls who presents today from [facility] with confusion, generalized weakness and report of falls in the last few days. At time of my interview patient resting quietly in his bed. He is not agitated and just wants to sleep. He refused to allow nursing to even flush his IV. He does not appear in distress or have complaints he is trying to convey except that he is tired. History Information - Allergies/Home Medication List Allergies/Adverse Reactions: iodine Allergy (Verified 06/12/17 17:47) Home Medications: Acetaminophen [Tylenol 325mg (*)] 650 mg PO Q6 PRN 06/12/17 [Last Taken Unknown] Albuterol [Proventil Inhaler HFA (*)] 2 puffs IH Q4H PRN 06/12/17 [Last Taken Unknown] Cholecalciferol Vit D3 [Vitamin D3 (*)] 1,000 units PO DAILY 06/12/17 [Last Taken Unknown] Escitalopram Oxalate [Lexapro] 10 mg PO DAILY 06/12/17 [Last Taken Unknown] Finasteride [Proscar 5 MG (*)] 5 mg PO DAILY 06/12/17 [Last Taken Unknown] Propranolol HCl 80 mg PO BID 06/12/17 [Last Taken Unknown] SUMAtriptan [Imitrex 50 MG (*)] 50 mg PO DAILY PRN 06/12/17 [Last Taken Unknown] Sennosides [Senokot] 1 each PO BID PRN 06/12/17 [Last Taken Unknown] Tiotropium Inhaler [Spiriva Inhaler (RX)] 1 inh IH DAILY 06/12/17 [Last Taken Unknown] clonazePAM [Klonopin (*)] 0.5 mg PO HS 06/12/17 [Last Taken 07/08/17] clonazePAM [Klonopin (*)] 0.5 mg PO Q8 PRN 06/12/17 [Last Taken Unknown] traZODone [traZODONE 50MG (*)] 50 mg PO HS 06/12/17 [Last Taken 07/08/17] I have personally reviewed and updated: family history, medical history, social history, surgical history Past Medical History: review of PFSHx limited to availability in EMR as patient deaf and with history of dementia. - Past Medical History Additional medical history: dementia. deafness. hx UTI. urinary retention. BPH. COPD on RA. gerd - Surgical History Additional surgical history: unable to obtain. - Family History Additional family history: unable to obtain - Social History Smoking Status: Former smoker Alcohol Use: None Drug Use: None Review of Systems Review of Systems: unable to obtain 2/2 pt deafness and is sleeping not able or willing to communicate through writing at this time and wants to sleep. Physical Exam Physical Exam: Temp Pulse Resp BP Pulse Ox 36.4 C 48 L 16 125/57 H 91 L 07/09/17 21:20 07/09/17 21:20 07/09/17 21:20 07/09/17 21:20 07/09/17 21:20 Constitutional: no apparent distress, not in pain, chronically ill appearing, cachectic, other (NAD. frail elderly cachectic appear male lays quietly in bed. ), No appears nourished Eyes: PERRL, anicteric sclera, EOMI (grossly normal.), No scleral injection Ears, Nose, Mouth, Throat: dry mucous membranes, other (no nasal discharge. ), No poor dentition (edentulous) Cardiovascular: regular rate and rhythym, no murmur, rub, or gallop, pulses symmetric bilaterally, No edema Peripheral Pulses: 1+: dorsalis-pedis (R), dorsalis-pedis (L) Respiratory: no respiratory distress, no rales or rhonchi, clear to auscultation , other (poor inspiratory effort. ) Gastrointestinal: normoactive bowel sounds, soft, non-tender abdomen, no palpable masses, No guarding, No rebound, No distension Genitourinary: no bladder fullness, no bladder tenderness, No larose in urethra Skin: warm, normal color, No no rashes or abrasions, No rash Musculoskeletal: generalized weakness, other (moves all extremities while laying in bed. ) Neurologic: other (limited evaluation 2/2 pt deafness and confusion. grossly nonfocal exam. ) Psychiatric: other (limited 2/2 deafness. ), No anxious, No agitated Lab Data & Imaging Review 07/10/17 05:02 07/10/17 05:02 WBC 13.99 10^3/uL (3.80-9.50) H 07/09/17 12:30 RBC 3.43 10^6/uL (4.40-6.38) L 07/09/17 12:30 Hgb 11.0 g/dL (13.7-17.5) L 07/09/17 12:30 Hct 31.7 % (40.0-51.0) L 07/09/17 12:30 MCV 92.4 fL (81.5-99.8) 07/09/17 12:30 MCH 32.1 pg (27.9-34.1) 07/09/17 12:30 MCHC 34.7 g/dL (32.4-36.7) 07/09/17 12:30 RDW 14.4 % (11.5-15.2) 07/09/17 12:30 Plt Count 179 10^3/uL (150-400) 07/09/17 12:30 MPV 11.5 fL (8.7-11.7) 07/09/17 12:30 Neut % (Auto) 80.5 % (39.3-74.2) H 07/09/17 12:30 Lymph % (Auto) 9.1 % (15.0-45.0) L 07/09/17 12:30 [place] % (Auto) 9.7 % (4.5-13.0) 07/09/17 12:30 Eos % (Auto) 0.0 % (0.6-7.6) L 07/09/17 12:30 Baso % (Auto) 0.2 % (0.3-1.7) L 07/09/17 12:30 Nucleat RBC Rel Count 0.0 % (0.0-0.2) 07/09/17 12:30 Absolute Neuts (auto) 11.25 10^3/uL (1.70-6.50) H 07/09/17 12:30 Absolute Lymphs (auto) 1.28 10^3/uL (1.00-3.00) 07/09/17 12:30 Absolute Monos (auto) 1.36 10^3/uL (0.30-0.80) H 07/09/17 12:30 Absolute Eos (auto) 0.00 10^3/uL (0.03-0.40) L 07/09/17 12:30 Absolute Basos (auto) 0.03 10^3/uL (0.02-0.10) 07/09/17 12:30 Absolute Nucleated RBC 0.00 10^3/uL (0-0.01) 07/09/17 12:30 Immature Gran % 0.5 % (0.0-1.1) 07/09/17 12:30 Immature Gran # 0.07 10^3/uL (0.00-0.10) 07/09/17 12:30 PT 15.8 SEC (12.0-15.0) H 07/09/17 12:30 INR 1.26 (0.83-1.16) H 07/09/17 12:30 APTT 30.9 SEC (23.0-38.0) 07/09/17 12:30 Sodium 146 mEq/L (134-144) H 07/09/17 19:25 Potassium 3.6 mEq/L (3.5-5.2) 07/09/17 19:25 Chloride 111 mEq/L (97-110) H 07/09/17 19:25 Carbon Dioxide 27 mEq/l (22-31) 07/09/17 19:25 Anion Gap 8 mEq/L (8-16) 07/09/17 19:25 BUN 58 mg/dL (7-23) H 07/09/17 19:25 Creatinine 1.6 mg/dL (0.7-1.3) H 07/09/17 19:25 Estimated GFR 42 07/09/17 19:25 Glucose 115 mg/dL (70-100) H 07/09/17 19:25 Calcium 8.4 mg/dL (8.5-10.4) L 07/09/17 19:25 Total Bilirubin 1.1 mg/dL (0.1-1.4) 07/09/17 12:30 Urine Color YELLOW 07/09/17 13:30 Urine Appearance CLEAR 07/09/17 13:30 Urine pH 5.0 (5.0-7.5) 07/09/17 13:30 Ur Specific [place] 1.016 (1.002-1.030) 07/09/17 13:30 Urine Protein NEGATIVE (NEGATIVE) 07/09/17 13:30 Urine Ketones NEGATIVE (NEGATIVE) 07/09/17 13:30 Urine Blood NEGATIVE (NEGATIVE) 07/09/17 13:30 Urine Nitrate NEGATIVE (NEGATIVE) 07/09/17 13:30 Urine Bilirubin NEGATIVE (NEGATIVE) 07/09/17 13:30 Urine Urobilinogen NEGATIVE EU (0.2-1.0) 07/09/17 13:30 Ur Leukocyte Esterase NEGATIVE (NEGATIVE) 07/09/17 13:30 Urine RBC NONE SEEN /hpf (0-3) 07/09/17 13:30 Urine WBC 1-3 /hpf (0-3) 07/09/17 13:30 Ur Epithelial Cells TRACE /lpf (NONE-1+) 07/09/17 13:30 Hyaline Casts 1-5 /lpf (0-1) 07/09/17 13:30 Urine Mucus TRACE /lpf (NONE-1+) 07/09/17 13:30 Urine Glucose NEGATIVE (NEGATIVE) 07/09/17 13:30 Imaging Review: AP and lateral chest x-ray 1348 hours History: Sepsis. Altered mental status for 2 weeks. Findings: Comparison to 06/12/2017. Heart size remains mildly enlarged. Pulmonary vasculature remains mildly prominent centrally. There are stable mild prominent interstitial markings at the lung bases with mild increase at the lung periphery bilaterally that could represent mild interstitial edema. There is no consolidation or effusion. Calcified granuloma is once again noted right middle lobe. There is no pneumothorax. There is accentuation of the anterior kyphosis mid thoracic spine stable in appearance with associated disk space narrowing and marginal osteophytes. Impression: 1. No focal consolidation. 2. Mild increased interstitial markings involving the lung periphery bilaterally. Consider mild fluid overload with interstitial edema on top of some mild interstitial lung disease ___ CT Brain (Without Contrast) at 1554 hours History: Fall, head trauma , altered mental status. Comparison: CT June 12, 2017. Technique: Axial computed tomographic images of the brain without contrast. Dose reduction techniques were utilized. Multiplanar reconstructions including 3-D reconstructions performed and evaluated on [employer] workstation in order to better evaluate the Skull for fractures. 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 Ventricles , cisterns, and sulci are widened consistent with atrophy. No hydrocephalus, midline shift/herniation, or epidural /subdural hematomas. No acute intraparenchymal hemorrhage or mass effect. Cerebrovascular atherosclerosis. Hypodensities in the white matter of bilateral cerebral hemispheres. Bone windows demonstrate no displaced fractures. Paranasal sinuses and mastoid air cells are clear. No skull fracture. Impression: 1. Moderate atrophy. 2. 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 No acute hemorrhage, hydrocephalus, or mass effect. 3. Cerebrovascular atherosclerosis. 4. No definite acute infarct. 5. Severe microvascular ischemic gliosis. 6. No epidural or subdural hematoma. Findings and recommendations discussed with Emergency Department physician, David Salinas MD at 16:23 hour, 07/09/2017. Final report concurs with initial preliminary interpretation. Right femur 4 views History: Bruise of posterior thigh. Combative patient would not allow completion of examination. Findings: Artifacts from clothing overlie the anatomy. The bones are intact. Joint spaces have normal thickness. No erosions and no periosteal reaction are found. No radiopaque foreign body. Impression: Limited negative examination. Visualized and Interpreted Chest x-ray results: Yes Visualized and Interpreted imaging results: Yes Visualized and Interpreted EKG results: Yes EKG additional interpertation: Sinus marvin 50s. no acute ST changes. PAC. borderline TX prolongation. QTc 493 Assessment & Plan Assessment: 1. AMS - patient with history of dementia. communication also limited by deafness and patient also appeared confused with use of mosaic tile maker. pt not willing/able to utilize writing to communicate needs but clearly indicates he wants to sleep. has not allowed nursing staff to treat, draw blood or check vitals. patient currently resting quietly and will encourage oral hydration as possible. ddx including dementia vs. dehydration vs. less likely infectious process. CT neg for acute findings. cxr showing interstitial lung changes without evidence of pneumonia. saturating well on RA. 2. sylvie - creatinine improved after IVF bolus 2 liters in ED however now patient refusing further IVF. likely pre-renal. encourage oral hydration. 3. hypernatremia - likely 2/2 decreased free water intake but will encourage. hematoma - right upper leg. check ck. IVF hydration if patient will allow. 4.falls - recurrent - PT/OT as possible. fall precautions. patient impulsive and does not ask for assistance. 5. hypoalbuminemia - likely related to protein calorie malnutrition. will encourage patient to orally hydrate and monitor intake. Dietary consult. 6. BPH - monitor for any urinary retention. 7. COPD - no evidence of exacerbation. albuterol neb prn. 8. gerd - no evidence of sx. monitor. not on any ppi or h2 therapy. 9. dementia - supportive care. possible component of sun downing this evening. will allow patient to sleep. hold off on trazodone, klonipin at this time with acute on chronic AMS. 10. deafness - will need industrial retrofit designer if patient not able to utilize writing board. FEN - IVF if permitted by patient. electrolyte replacement prn. advance diet and encourage oral intake PPX - SCDs. COR - FULL at this time until can clarify with Immanuel quintanan/or family Dispo - admit observation on medical floor.
[2017-07-10 05:22] LABS: % IMMATURE GRANULYOCYTES 0.4 % (0.0-1.1); ABSOLUTE IMMATURE GRANULOCYTES 0.04 10^3/uL (0.00-0.10); ADD DIFF? NO; ADD MORPH? NO; ADD SCAN? NO; ATYPICAL LYMPHOCYTE FLAG 0 (0-99); FRAGMENT RBC FLAG 0 (0-99); HEMATOCRIT 28.5 % (40.0-51.0); HEMOGLOBIN 9.3 g/dL (13.7-17.5); LEFT SHIFT FLG 0 (0-99); LIPEMIA HEMOLYSIS FLAG 80 (0-99); MEAN CELL HEMOGLOBIN 30.6 pg (27.9-34.1); MEAN CELL HEMOGLOBIN CONCENTR. 32.6 g/dL (32.4-36.7); MEAN CELL VOLUME 93.8 fL (81.5-99.8); MEAN PLATELET VOLUME 11.1 fL (8.7-11.7); PLATELET CLUMPS FLAG 0 (0-99); PLATELET COUNT 124 10^3/uL (150-400); RED BLOOD CELL COUNT 3.04 10^6/uL (4.40-6.38); RED CELL DISTRIBUTION WIDTH 14.5 % (11.5-15.2)
[2017-07-10 05:29] LABS: ALANINE AMINOTRANSFERASE 29 IU/L (21-72); ALBUMIN 2.8 g/dL (3.5-5.0); ALKALINE PHOSPHATASE 55 IU/L (38-126); ANION GAP 10 mEq/L (8-16); ASPARTATE AMINOTRANSFERASE 17 IU/L (17-59); BILIRUBIN,TOTAL 0.9 mg/dL (0.1-1.4); CALCIUM 8.6 mg/dL (8.5-10.4); CARBON DIOXIDE 25 mEq/l (22-31); CHLORIDE 114 mEq/L (97-110); CREATININE 1.4 mg/dL (0.7-1.3); GLOMERULAR FILTRATION RATE 49; GLUCOSE 91 mg/dL (70-100); POTASSIUM 3.6 mEq/L (3.5-5.2); SODIUM 149 mEq/L (134-144); TOTAL PROTEIN 4.6 g/dL (6.3-8.2)
[2017-07-10 05:32] LABS: APTT 32.7 SEC (23.0-38.0); INR 1.33 (0.83-1.16); PROTIME(PATIENT) 16.5 SEC (12.0-15.0)
[2017-07-10] MEDS ORDERED: SENNOSIDES 1 TAB PO PRN (09:05)
[2017-07-10] MEDS ORDERED: ALBUTEROL 60 PUFFS/8 GM MDI IH PRN (09:05)
[2017-07-10] MEDS ORDERED: SUMAtriptan 50 MG TAB PO PRN (09:05)
--- NOTE | 2017-07-10 09:09 | HOSPPROG ---
Hospitalist Progress Note Assessment/Plan: Patient is a 68-year-old male who was recently hospitalized in May for generalized weakness. He presented from [facility] with confusion, general weakness and reported falls in the last few days. Today is my 1st encounter with the patient. Chart reviewed. 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 She says her father's baseline is agitation and difficulty with walking/ does best in a wheelchair -they have had increase difficulty managing him at /have asked neurology to see to help manage his agitation -he did very well today with the diplomatic interpreter, but he is very confused. He does not know where he is. He does not know where he lives regularly. He knows that he has a daughter * acute kidney injury -creatinine improved after getting hydration. Was 2.1 and now is 1.4 * hypernatremia -bit worse today. Patient no longer has an IV in him. Will recheck his labs in the morning to make sure he is adequately hydrated * hematoma noted in the right upper leg area * gait instability with frequent falls -patient is impulsive at times -will ask Physical therapy and Occupational therapy for further input -spoke with patient's daughter. He has been requesting to use a wheelchair because his legs are so weak -femur x-ray shows nothing acute * BPH -on Proscar * hearing loss -patient could only comprehend via an diplomatic interpreter from sign language -when I evaluated him he does not appear that he reads lips * COPD -oxygen level stable on room air * plan. Spoke with Neurology and they will see him tomorrow. I am asking the neurologist to help with managing his agitation. I think this is multifactorial in that he has difficulty with communicating and has significant dementia. Will get repeat labs in a.m. will need another midnight stay to have a plan to help support the patient when he returns to . This will make him IP. Will continue the Klonopin p.r.n. during the day but would discontinue the trazodone at night. Patient's daughter is Ashley, her # is [phone]. Subjective: Han says nothing hurts/ met w him via the 'sign diplomatic interpreter' Objective: Vital Signs Temp Pulse Resp BP Pulse Ox 36.4 C 47 L 15 151/83 H 95 07/10/17 03:52 07/10/17 03:52 07/10/17 03:52 07/10/17 03:52 07/10/17 03:52 Laboratory Results 07/10/17 05:02 07/10/17 05:02 07/09/17 07/10/17 07/11/17 05:59 05:59 05:59 Intake Total 150 Balance 150 PT 16.5 SEC (12.0-15.0) H 07/10/17 05:02 INR 1.33 (0.83-1.16) H 07/10/17 05:02 - Physical Exam Constitutional: chronically ill appearing, other (thin) Eyes: PERRL Ears, Nose, Mouth, Throat: dry mucous membranes, other (deaf) Respiratory: no respiratory distress Gastrointestinal: normoactive bowel sounds Skin: warm Musculoskeletal: generalized weakness Neurologic: other (alert and oriented to himself only) Psychiatric: poor insight, poor judgement, poor memory ICD10 Worksheet Patient Problems: Problems Problem Status Onset SINA (acute kidney injury) Acute Fall Acute Generalized weakness Acute Pyelonephritis, acute Acute
[2017-07-10] MEDS ORDERED: ALBUTEROL 200 PUFFS/18 GM MDI IH PRN (09:11)
[2017-07-10] MEDS ORDERED: PROPRANOLOL HCL 80 MG PO SCH (09:15)
[2017-07-10] MEDS: PROPRANOLOL HCL 40 MG TAB PO SCH ×2 (10:17→21:41)
[2017-07-10] MEDS: clonazePAM 0.5 MG TAB PO PRN ×2 (10:37→17:42)
--- NOTE | 2017-07-10 12:05 | ASMTCMCOM ---
CM Note CM Note Notes: Spoke w/RN, pt lives at [facility], anticipate will return there when medically stable, PT/OT evals pending. When pt goes back may benefit from restorative therapies through BM. CM w/f. Current DC Plan: Back to BM/LTC Date Signed: 07/10/2017 12:04 PM Electronically Signed By:Shanae Anne RN
[2017-07-10] MEDS: ACETAMINOPHEN 325 MG TAB PO PRN ×2 (14:07→17:42)
--- NOTE | 2017-07-10 15:52 | PDMN ---
Medical Necessity Medical necessity: Patient meets INPT criteria per COYOTE HUNTER note and [facility] Neurology GRG (presents with confusion, general weakness and reported falls the past few days; new altered mental status and acute encephalopathy with hx of dementia; SINA: Creat 2.1->1.4; hypernatremia worsened, Na 146->149; awaiting neuro consult /assistance w/mgmt. of pt's agitation; ongoing PT/OT for gait instabilitiy w/ freq falls; LOS will be > 2 midnights.)
[2017-07-11] MEDS ORDERED: FINASTERIDE 5 MG TAB PO SCH (09:00)
[2017-07-11] MEDS ORDERED: CHOLECALCIFEROL VIT D3 1,000 UNITS TAB PO SCH (09:00)
[2017-07-11] MEDS ORDERED: ESCITALOPRAM OXALATE 10 MG TAB PO SCH (09:00)
[2017-07-11] MEDS ORDERED: TIOTROPIUM INHALER 18 MCG/DOSE 5 DOSE/MDI IH SCH (09:00)
[2017-07-11 09:43] LABS: % IMMATURE GRANULYOCYTES 0.4 % (0.0-1.1); ABSOLUTE IMMATURE GRANULOCYTES 0.04 10^3/uL (0.00-0.10); ADD DIFF? NO; ADD MORPH? NO; ADD SCAN? NO; ATYPICAL LYMPHOCYTE FLAG 0 (0-99); FRAGMENT RBC FLAG 0 (0-99); HEMATOCRIT 32.3 % (40.0-51.0); HEMOGLOBIN 10.9 g/dL (13.7-17.5); LEFT SHIFT FLG 0 (0-99); LIPEMIA HEMOLYSIS FLAG 80 (0-99); MEAN CELL HEMOGLOBIN CONCENTR. 33.7 g/dL (32.4-36.7); MEAN CELL VOLUME 91.8 fL (81.5-99.8); PLATELET CLUMPS FLAG 0 (0-99); PLATELET COUNT 171 10^3/uL (150-400); RED BLOOD CELL COUNT 3.52 10^6/uL (4.40-6.38); RED CELL DISTRIBUTION WIDTH 14.6 % (11.5-15.2)
[2017-07-11 10:20] LABS: ANION GAP 9 mEq/L (8-16); CALCIUM 8.8 mg/dL (8.5-10.4); CARBON DIOXIDE 26 mEq/l (22-31); CHLORIDE 110 mEq/L (97-110); GLOMERULAR FILTRATION RATE > 60; GLUCOSE 93 mg/dL (70-100); POTASSIUM 3.9 mEq/L (3.5-5.2); SODIUM 145 mEq/L (134-144)
[2017-07-11] MEDS: PROPRANOLOL HCL 40 MG TAB PO SCH (10:43)
[2017-07-11 10:47] VITALS: BP 163/72
[2017-07-11 10:58] VITALS: PULSE 61; RESP 18; TEMP 98.2; O2SAT 93
--- NOTE | 2017-07-11 12:19 | NEUROPROG ---
Assessment: I have been asked by Mira Bailey, PRODUCTION ENGINE REPAIRER of HIM to review Mr. Solis's case regarding some behavioral disturbances. Mr. Solis is a 77 year old man with a reported history of Alzheimer dementia and acquired deafness. He uses ASL as his primary means of communication. He was admitted 07/09 to our facility after being transported from [facility] where he resides. The history of his visit is obtained from the medical record, nursing/ancillary staff and both hearing and deaf ASL interpreters. He had reported increasing confusion and falls at [facility] prompting evaluation. This seems to be a recurrent theme looking back at prior ED/ admission notes. He was found to be dehydrated on labs and clinically, so rehydration measures have been instituted. However, of main concern is his behavior at [facility]. He is quite impulsive and often does not accept help to exit his bed/chair for transfer assistance. He is generally wheelchair bound. He also tends to get in arguments with staff. By analysis of our switch maker and nursing colleagues, this seems to stem from a breakdown in communication with staff at [facility]. There is no certified deaf or hearing ASL interpreters present. It seems some staff may know some basic signs , but nothing one would consider fluency in ASL. He seems to frequently get frustrated when trying to interact with staff, which results in him doing whatever he deems necessary to achieve whatever goal he working towards. Here in our hospital, in the presence of our ASL interpreters, he has been calm and cooperative. He did pull his IV out last night, but it is not clear if an switch maker was present. He has not been combative or violent during his hospital stay here. Currently he is resting in bed. He is cachectic appearing. I was able to see him ambulate with 2 person assist earlier, and he certainly needs this support. I think the main issue regarding Mr. Solis's behavior is a breakdown in communication with the staff at [facility]. He seems to have no significant issues here in the presence of fluent ASL interpreters. I do agree with the discontinuation of clonazepam and trazodone given his history of dementia, as he may have a paradoxical response to these agents. For sleep, melatonin 3mg nightly may be a better option to assist with sleep. This can be escalated over time to upwards of 12mg. For any true behavioral issue, first line interventions would include behavioral modification including reassurance, distraction and redirection. For violent/disruptive events, a low dose of quetiapine, 12.5-25mg PO daily PRN severe agitation would be a better option from a medication perspective (he has a borderline QTc prolongation on his EKG, but I don't think this low dose poses a risk of cardiac dysrhythmia). For severe, violent outbursts where he would be unable to take PO, low-dose olanzapine IM would be of similar effectiveness. Overall, it may be best to reassess his living situation with case management and if possible find a living environment with appropriate resources for the deaf, such as staff that are truly fluent in ASL. Case was reviewed with staff/providers at bedside. 50 mins in direct patient care activities on the floor. Objective: Vital Signs Temp Pulse Resp BP Pulse Ox 36.8 C 61 18 163/72 H 93 07/11/17 10:57 07/11/17 10:57 07/11/17 10:57 07/11/17 10:57 07/11/17 10:57 Laboratory Results 07/11/17 09:35 07/11/17 09:35 PT 16.5 SEC (12.0-15.0) H 07/10/17 05:02 INR 1.33 (0.83-1.16) H 07/10/17 05:02 Allergies/Adverse Reactions: iodine Allergy (Verified 06/12/17 17:47)
--- NOTE | 2017-07-11 14:08 | HOSPPROG ---
Hospitalist Progress Note Assessment/Plan: Patient is a 68-year-old male who was recently hospitalized in May for generalized weakness. He presented from [facility] with confusion, general weakness and reported falls in the last few days. 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 She says her father's baseline is agitation and difficulty with walking/ does best in a wheelchair -he did very well today with the per diem interpreter. He is calm and cooperative. * acute kidney injury -creatinine improved after getting hydration. Was 2.1 and now is 1.0 * hypernatremia -Na is 145/ bit elevated * hematoma noted in the right upper leg area * gait instability with frequent falls -patient is impulsive at times -PT and OT recommending rehab -patient wants to use a wheelchair -femur x-ray shows nothing acute * BPH -on Proscar * hearing loss -patient could only comprehend via an per diem interpreter from sign language -when I evaluated him he does not appear that he reads lips * COPD -oxygen level stable on room air * plan. dc back to [facility]/asking that consult from Dr Frazier be sent with him Subjective: Han has no complaints/ met with him via the per diem interpreter. Objective: Vital Signs Temp Pulse Resp BP Pulse Ox 36.8 C 61 18 163/72 H 93 07/11/17 10:57 07/11/17 10:57 07/11/17 10:57 07/11/17 10:57 07/11/17 10:57 Laboratory Results 07/11/17 09:35 07/11/17 09:35 PT 16.5 SEC (12.0-15.0) H 07/10/17 05:02 INR 1.33 (0.83-1.16) H 07/10/17 05:02 - Physical Exam Constitutional: not in pain, unkempt, cachectic Eyes: PERRL Ears, Nose, Mouth, Throat: other (deaf) Cardiovascular: regular rate and rhythym Respiratory: no respiratory distress Skin: warm, No normal color (pale) Musculoskeletal: generalized weakness Neurologic: other (alert and impulsive at times) Psychiatric: poor insight, poor judgement ICD10 Worksheet Patient Problems: Problems Problem Status Onset SIAN (acute kidney injury) Acute Fall Acute Generalized weakness Acute Pyelonephritis, acute Acute
--- NOTE | 2017-07-11 14:25 | PDIAF ---
- Diagnosis Diagnosis: acute encephalopathy/ deafness, renal insuff/ dehydration - Medication Management Discharge Medications: Medications to Continue on Transfer Acetaminophen [Tylenol 325mg (*)] 650 mg PO Q6 PRN 06/12/17 [Last Taken Unknown] Albuterol [Proventil Inhaler HFA (*)] 2 puffs IH Q4H PRN 06/12/17 [Last Taken Unknown] Cholecalciferol Vit D3 [Vitamin D3 (*)] 1,000 units PO DAILY 06/12/17 [Last Taken Unknown] Escitalopram Oxalate [Lexapro 10 MG] 10 mg PO DAILY 06/12/17 [Last Taken Unknown ] Finasteride [Proscar 5 MG (*)] 5 mg PO DAILY 06/12/17 [Last Taken Unknown] Propranolol HCl 80 mg PO BID 06/12/17 [Last Taken Unknown] SUMAtriptan [Imitrex 50 MG (*)] 50 mg PO DAILY PRN 06/12/17 [Last Taken Unknown] Sennosides [Senokot] 1 each PO BID PRN 06/12/17 [Last Taken Unknown] Tiotropium Inhaler [Spiriva Inhaler (RX)] 1 inh IH DAILY 06/12/17 [Last Taken Unknown] clonazePAM [Klonopin (*)] 0.5 mg PO Q8 PRN 06/12/17 [Last Taken Unknown] Acetaminophen [Tylenol 325mg (*)] 650 mg PO Q4HRS PRN tab 07/11/17 [Last Taken Unknown] Melatonin [Melatonin 3 MG (*)] 3 mg PO HS #30 tab 07/11/17 [Last Taken Unknown] Discharge Medications: Refer to the Discharge Home Medication list for PRN reason. - Orders Services needed: Physical Therapy, Occupational Therapy Diet Recommendation: no restrictions on diet Diet Texture: Regular Texture Diet Additional: Trazadone and Klonopin qhs were discontinued due to falling. Recommendation is to stop klonopin, may be causing paradoxical symptoms. Use Melatonin at night for sleep/ can increase this dose if needed. Review note from neurology while at the hospital/ could use seroquel or zyprexa if needed. Recommendation is if possible to get someone who is a certified sign lay out former to help explain things to him. - Labs/Radiology BMP Date: 07/14/17 (monthly) - Follow Up Care Current Providers and Referrals: TRISH CONRAD [Other] - As per Instructions
--- NOTE | 2017-07-11 15:06 | ASMTCMCOM ---
CM Note CM Note Notes: Please disregard CM Discharge Plan Note. This pt discharged back [facility] not [facility]. Transport set up by . Date Signed: 07/11/2017 03:05 PM Electronically Signed By:BISI Rodriguez
--- NOTE | 2017-07-11 15:07 | ASDISCHSUM ---
Discharge Information Plan Status:SNF Medically Cleared to Leave:07/10/2017 Discharge Date:07/10/2017 CM D/C Disposition:Custodial Facility ADT D/C Disposition:Custodial Facility Projected Discharge Date:07/11/2017 11:00 AM Transportation at D/C:Wheelchair Van Discharge Delay Reason: Follow-Up Date:07/11/2017 11:00 AM Discharge Slot: Final Diagnosis: Placement Information Referral Type:*Shelter/SNF Referral ID:[id number] Provider Name:Immanuel Aguilar/[facility] Address 1:[address] Phone Number: Address 2: Fax Number: [facility]:[place] Selection Factors: State:[place] Patient Contact Information Contact Name:FAUSTO Relationship:Daughter Address: City: [place] [facility] Phone: [facility]/Discourse Code: Email: Financial Information Financial Class:Medicare Advantage Plans Primary Plan Desc:[employer] MED[employer]ARE ADV IP Primary Plan Number:[id number] Secondary Plan Desc: Secondary Plan Number: Assessment Information [facility] CM Progress Note CM Note CM Note Notes: Jose w/RN, pt lives at [facility], anticipate will return there when medically stable, PT/OT evals pending. When pt goes back may benefit from restorative therapies through BM. SHEBA w/f. Current DC Plan: Back to /[facility] Date Signed: 07/10/2017 12:04 PM Electronically Signed By:Shanae Anne RN Case Management Discharge Plan Note Case Management Discharge Discharge Order Complete? Answers: Yes Patient to Obtain Answers: Other Notes: [facility] [place] Medications Transportation Arranged Answers: Other Notes: Immanuel Packer W/C Transport Transport will Pick (Date 07/11/2017 04:00 PM & Time) Faxed Final Orders Answers: Yes Family Notified Answers: No Discharge Comments Notes: Pt completed dialysis today and is returning to [facility]. Transport set up by . Date Signed: 07/11/2017 03:02 PM Electronically Signed By:BISI Rodriguez [facility] CM Progress Note CM Note CM Note Notes: Please disregard CM Discharge Plan Note. This pt discharged back to [facility] not [facility]. Transport set up by . Date Signed: 07/11/2017 03:05 PM Electronically Signed By:BISI Rodriguez Intervention Information
--- NOTE | 2017-07-11 21:40 | GDS ---
[f rep st] DISCHARGE SUMMARY DISCHARGE DIAGNOSES: 1. Acute encephalopathy, likely on chronic encephalopathy. 2. Alzheimer dementia. 3. Acute kidney injury. 4. Hyponatremia. 5. Hematoma noted on his right upper leg area. 6. Gait instability with frequent falls. 7. Benign prostatic hypertrophy. 8. Deafness. 9. Chronic obstructive pulmonary disease. CONSULTATION: Daniel Hannon MD. HISTORY OF PRESENT ILLNESS: Briefly, the patient is a 77-year-old deaf gentleman who resides at [facility]. He was recently hospitalized in May of this year for generalized weakness. He presented from [facility] with confusion, general weakness, and falls over the last few days. He was very agitated on his admission. He had a CT of his head performed, which showed moderate atrophy. 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 In addition, he had a femur x-ray performed because he had been falling, which was a limited negative examination. Subsequently, he was seen and evaluated by Neurology. The neurologist believed that the main issue regarding the patient's behavior is a breakdown in communication with the staff at [facility]. He has not had any significant issues here, but we have also had a nurses director here who was able to interpret information to the patient. In addition, his trazodone has been discontinued. His night dose of clonazepam has been discontinued. His p.r.n. doses have remained. Recommendation, if he does get violent, to do a trial of Seroquel p.r.n. for severe agitation or a low dose of olanzapine. Today, he will be discharged back to [facility] with physical therapy and occupational therapy. HOSPITAL COURSE: 1. Acute on chronic encephalopathy. He did not have any infectious etiology. He has improved. 2. Alzheimer dementia. His daughter said he does get agitated quickly and can be difficult to manage. Also, he does not want to walk. He prefers a wheelchair. 3. Acute kidney injury. This improved with hydration. His creatinine is 1. It was 2.1 on admission. 4. Hyponatremia, also improved. 5. Hematoma on the right upper leg area. X-rays negative. 6. Gait instability. PT and OT will be ordered at the alf facility. 7. BPH, on Proscar. 8. Deafness. Does best if someone is skilled in sign language. 9. COPD. Oxygen levels are stable on room air. DISCHARGE CONDITION: Stable. Blood pressure is 163/72, heart rate is 61, respiratory rate is 18, O2 saturation on room air 93%, temperature 36.8 Celsius. MEDICATIONS AT DISCHARGE: Please see the EMR. Trazodone has been discontinued as well as his night dose of Klonopin. Melatonin has been in place, and this dose can be increased. DISCHARGE INSTRUCTIONS: 1. Recommendation is for a certified nurses director to be available whenever possible at [facility]. 2. Try melatonin for sleep. Greater than 30 minutes discharging and coordinating the patient's care. /[id number]/MODL MTDD
== END 2017-07-11 16:59 | DRG 682 ==
LOC: EDUNIT# → INTOOBSV 20:12 → F3E 20:59 → OBSVTOIN 07-10 15:26 → F3E 07-10 17:58
PROVIDERS: ADMIT Internal Medicine; ATTEND Internal Medicine
DX: N17.9 Acute kidney failure, unspecified (principal); G93.40 Encephalopathy, unspecified; G30.9 Alzheimer's disease, unspecified; F02.80 Dementia in other diseases classified elsewhere, unspecified severity, without behavioral disturbance, psychotic disturbance, mood disturbance, and anxiety; E87.0 Hyperosmolality and hypernatremia; H91.93 Unspecified hearing loss, bilateral; J44.9 Chronic obstructive pulmonary disease, unspecified; K21.9 Gastro-esophageal reflux disease without esophagitis; N40.0 Benign prostatic hyperplasia without lower urinary tract symptoms; I10 Essential (primary) hypertension; R29.6 Repeated falls; S70.11XA Contusion of right thigh, initial encounter; W19.XXXA Unspecified fall, initial encounter; Y92.129 Unspecified place in nursing home as the place of occurrence of the external cause
CPT/HCPCS: 96374; 97116-GP; 97162-GP; 97165-GO; 97535-GO; G0378; J3010

== ENCOUNTER 2017-08-23 20:27 | Emergency (ER) | payer OTHER ==
[2017-08-23 20:40] VITALS: BP 179/88; RESP 18; TEMP 97.3; O2SAT 94
--- NOTE | 2017-08-23 20:41 | EDPHY ---
H & P Smoking Status: Former smoker Time Seen by Provider: 08/23/17 20:27 HPI/ROS: CHIEF COMPLAINT: Witnessed fall, positive wrist fracture HISTORY OF PRESENT ILLNESS: 77-year-old male presents to the emergency department by ambulance with left wrist injury. The patient is a resident at [facility] and had a witnessed, mechanical fall yesterday. Today the obtained x-rays which were positive for distal radius fracture and he was sent to the emergency department for evaluation. The patient is deaf and mute. Per staff at [facility], he did not hit his head or lose consciousness. No vomiting. The staff noticed swelling to his left wrist and x-rays were obtained. No noted injuries to his lower extremities. He did not hit his head or lose consciousness per EMS. REVIEW OF SYSTEMS: Constitutional: No fever, no chills. Eyes: No double or blurry vision. ENT: No sore throat. Respiratory: No cough, no shortness of breath. Cardiac: No chest pain. Gastrointestinal: No abdominal pain, vomiting or diarrhea. Genitourinary: No dysuria. Musculoskeletal: No neck or back pain. Skin: No rashes. Neurological: No headache. (Jennifer Chinga iLnh) Past Medical/Surgical History: Deaf, mute, dementia, hypertension, COPD, GERD, migraine headaches (Humza Navya Linh) Social History: Resident at [facility] (Navya Ching M) Physical Exam: General Appearance: Alert, no distress. No visible signs of trauma to his head. Eyes: Pupils equal and round. Extraocular motions are all intact. ENT: Mouth: Mucous membranes moist. Respiratory: No wheezing, rhonchi, or rales, lungs are clear to auscultation. Cardiovascular: Regular rate and rhythm. Gastrointestinal: Abdomen is soft and nontender, no masses, no rebound or guarding, bowel sounds normal. Neurological: uncooperative, cannot determine. Skin: Warm and dry, no rashes. Musculoskeletal: Nontender to palpate along the cervical, thoracic or lumbar spine. Neck is supple. Extremities: Patient has swelling noted to the left wrist. He seems to be moving his left wrist without any pain. He has limited supination however. No abrasion or puncture wound. Strong radial pulse at the left wrist. Psychiatric: mild agitation. (HumzaNavya Linh) Constitutional: Initial Vital Signs Temperature (C) 36.3 C 08/23/17 20:35 Heart Rate 54 L 08/23/17 20:35 Respiratory Rate 18 08/23/17 20:35 Blood Pressure 179/88 H 08/23/17 20:35 O2 Sat (%) 94 08/23/17 20:35 O2 Delivery Mode Room Air Allergies/Adverse Reactions: iodine Allergy (Verified 08/23/17 20:40) Home Medications: Medication Instructions Recorded Albuterol [Proventil Inhaler HFA 2 puffs IH Q4H PRN 06/12/17 (*)] Cholecalciferol Vit D3 [Vitamin D3 1,000 units PO DAILY 06/12/17 (*)] Escitalopram Oxalate [Lexapro 10 10 mg PO DAILY 06/12/17 MG] Finasteride [Proscar 5 MG (*)] 5 mg PO DAILY 06/12/17 Propranolol HCl 80 mg PO BID 06/12/17 SUMAtriptan [Imitrex 50 MG (*)] 50 mg PO DAILY PRN 06/12/17 Sennosides [Senokot] 1 each PO BID PRN 06/12/17 Tiotropium Inhaler [Spiriva 1 inh IH DAILY 06/12/17 Inhaler (RX)] clonazePAM [Klonopin (*)] 0.5 mg PO Q8 PRN 06/12/17 Acetaminophen [Tylenol 325mg (*)] 650 mg PO Q4HRS PRN tab 07/11/17 Melatonin [Melatonin 3 MG (*)] 3 mg PO HS #30 tab 07/11/17 Medical Decision Making - Diagnostics Imaging: I viewed and interpreted images myself Procedures: The patient was given a hematoma block with 0.5% bupivacaine. His fracture was then strained which traction and placed in a splint with nurse and tech travel assistant. He tolerated the procedure well. C-arm was used. Procedure: Splint placement. A sugar-tong splint was applied. After application of the splint I returned and re-examined the patient. The splint was adequately immobilizing the joint and distal to the splint the patient's circulation and sensation was intact. ( Daniel Saeed) ED Course/Re-evaluation: 77-year-old male presents with witnessed mechanical fall from yesterday. X- rays reveal distal radius fracture which is angulated. Reduction performed by Dr. Daniel Saeed, see Dr. Daniel Saeed use procedure note. Patient was placed in a splint and sling and examined post application in good placement with normal SUPERVISING FLOORPERSON. He was instructed to keep this on until follow-up with orthopedic surgeon next week. Patient will be discharged back to [facility]. (Navya Ching) Differential Diagnosis: Including but not limited to fracture, dislocation, contusion, sprain, compartment syndrome, cellulitis (Navya Ching) Departure - Departure Disposition: Home, Routine, Self-Care Clinical Impression: Left wrist fracture Qualifiers: Encounter type: initial encounter Fracture type: closed Qualified Code(s): S62.102A - Fracture of unspecified carpal bone, left wrist, initial encounter for closed fracture Condition: Good Instructions: Wrist Fracture in Adults (ED) Additional Instructions: Keep splint and sling on until follow up with orthopedic doctor next week. Referrals: Eveline Mcallister MD [Medical Doctor] - 2-3 days without fail (Orthopedic surgeon on- call)
[2017-08-23 23:56] VITALS: PULSE 86
== END 2017-08-23 23:57 | disposition home or self-care (01) ==
LOC: EDUNIT#
PROC: 0PSJXZZ Reposition Left Radius, External Approach (ICD-10-PCS; principal; 2017-08-23)
DX: S52.502A Unspecified fracture of the lower end of left radius, initial encounter for closed fracture (principal); J44.9 Chronic obstructive pulmonary disease, unspecified; I10 Essential (primary) hypertension; Z87.891 Personal history of nicotine dependence; W19.XXXA Unspecified fall, initial encounter
CPT/HCPCS: 25605; 73110; 99283; A4565

== ENCOUNTER 2017-08-31 13:17 | Inpatient (IN) | payer OTHER ==
[2017-08-31] MEDS ORDERED: NS 1,000 ML IV ONE (13:24)
--- NOTE | 2017-08-31 13:26 | EDPHY ---
HPI/HX/ROS/PE/MDM Narrative: CHIEF COMPLAINT: Lethargy, weakness HPI: This patient is a deaf 77 y/o male with history of dementia, COPD arriving via EMS from [facility] for evaluation of weakness and lethargy. EMS reports his daughter visits weekly on Sundays, and this morning she noted he seemed lethargic and altered. They communicate by sign language, and he seemed to be poorly responsive today. Vitals were stable in transport. The patient has a productive cough as well. Further HPI unobtainable at this time. Patient's daughter and city designer in route. REVIEW OF SYSTEMS: Aside from elements discussed in the HPI, a comprehensive 10-point review of systems was reviewed and is negative. PMH: 1. COPD 2. Hypertension 3. Dementia 4. BPH 5. GERD 6. Deaf since age 1. SOCIAL HISTORY: Dai patient. Lives at [facility]. Daughter at bedside. Retired. PHYSICAL EXAM: General:Patient is alert, in no acute distress. ENT: Dry mucous membranes. Eyes are normal to inspection. ENT inspection normal. Neck: Normal inspection. Full range of motion. Respiratory:No respiratory distress. Breath sounds normal bilaterally. Cardiovascular: Regular rate and rhythm. Strong peripheral pulses. Normal cap refill. Abdomen:The abdomen is nontender to palpation. There are no peritoneal signs. There are normal bowel sounds. Back: Normal to inspection. No tenderness to palpation. Skin: Normal color. No rash. Warm and dry. Extremities: Normal appearance. Full range of motion. Neuro: Oriented x3. Normal motor function. Normal sensory function. ED Course: 13:20 met EMS at bedside 77 y/o male presents with weakness and productive cough. Plan for EKG, chest x- ray, labs including CBC, BMP, troponin, flu swab. Plan to administer 1L IV NS. The patient was recently treated here one week ago for a left wrist fracture. Exam reveals mild tenderness and obvious swelling and deformity to the left wrist. His daughter at bedside states that the staff at his nursing facility would not maintain his splint as he continually attempted to remove it. She is very concerned and displeased regarding this treatment by custodial staff. Plan for repeat left wrist x-ray. 14:19 Reviewed chest x-ray. Evidence of right upper lobe infiltrate. Plan to administer 750mg IV Levaquin. Plan to admit patient for pneumonia. Wrist x-ray confirms stale distal radius fracture, displaced fracture of the ulnar styloid. Plan to consult with orthopedic surgeon concrete block molder. 14:28 Spoke with hospitalist service. Dr. Johnston accepts admission for pneumonia. 14:[address] Wei, visual specialist. He will consult. - Data Points Imaging Results: Imaging Impressions Chest X-Ray 08/31/17 13:26 Impression: Possible early pneumonia in the right upper lobe. Mild interstitial prominence and peribronchial wall thickening, which is stable and could be secondary to chronic interstitial lung disease. Other chronic findings, as above , which are stable. Wrist X-Ray 08/31/17 13:32 Impression: Comminuted intraarticular fracture of the distal left radius with stable alignment. Displaced fracture of the ulnar styloid. Imaging: I viewed and interpreted images myself Laboratory Results: Laboratory Results 08/31/17 13:31 08/31/17 13:31 08/31/17 08/31/17 08/31/17 13:31 13:31 13:30 WBC 13.90 10^3/uL H 10^3/uL (3.80-9.50) RBC 4.15 10^6/uL L 10^6/uL (4.40-6.38) Hgb 13.2 g/dL L g/dL (13.7-17.5) Hct 39.2 % L % (40.0-51.0) MCV 94.5 fL fL (81.5-99.8) MCH 31.8 pg pg (27.9-34.1) MCHC 33.7 g/dL g/dL (32.4-36.7) RDW 15.1 % % (11.5-15.2) Plt Count 164 10^3/uL 10^3/uL (150-400) MPV 10.8 fL fL (8.7-11.7) Neut % (Auto) 84.9 % H % (39.3-74.2) Lymph % (Auto) 10.6 % L % (15.0-45.0) Converse % (Auto) 3.9 % L % (4.5-13.0) Eos % (Auto) 0.0 % L % (0.6-7.6) Baso % (Auto) 0.2 % L % (0.3-1.7) Nucleat RBC Rel Count 0.0 % % (0.0-0.2) Absolute Neuts (auto) 11.79 10^3/uL H 10^3/uL (1.70-6.50) Absolute Lymphs (auto) 1.48 10^3/uL 10^3/uL (1.00-3.00) Absolute Monos (auto) 0.54 10^3/uL 10^3/uL (0.30-0.80) Absolute Eos (auto) 0.00 10^3/uL L 10^3/uL (0.03-0.40) Absolute Basos (auto) 0.03 10^3/uL 10^3/uL (0.02-0.10) Absolute Nucleated RBC 0.00 10^3/uL 10^3/uL (0-0.01) Immature Gran % 0.4 % % (0.0-1.1) Immature Gran # 0.06 10^3/uL 10^3/uL (0.00-0.10) Sodium 153 mEq/L H mEq/L (134-144) Potassium 3.5 mEq/L mEq/L (3.5-5.2) Chloride 110 mEq/L mEq/L (97-110) Carbon Dioxide 31 mEq/l mEq/l (22-31) Anion Gap 12 mEq/L mEq/L (8-16) BUN 43 mg/dL H mg/dL (7-23) Creatinine 1.2 mg/dL mg/dL (0.7-1.3) Estimated GFR 58 Glucose 93 mg/dL mg/dL (70-100) Calcium 9.9 mg/dL mg/dL (8.5-10.4) Troponin I 0.016 ng/mL ng/mL (0.000-0.034) Nasal Influenza A PCR NEGATIVE FOR FLU A (NEGATIVE) Nasal Influenza B PCR NEGATIVE FOR FLU B (NEGATIVE) Medications Given: Discontinued Medications Sodium Chloride (Ns) 1,000 mls @ 0 mls/hr IV ONCE ONE; Wide Open PRN Reason: Protocol Stop: 08/31/17 13:25 Last Admin: 08/31/17 14:10 Dose: 1,000 mls General Time Seen by Provider: 08/31/17 13:19 Initial Vital Signs: Initial Vital Signs Temperature (C) 36.4 C 08/31/17 13:52 Heart Rate 50 L 08/31/17 13:52 Respiratory Rate 18 08/31/17 13:52 Blood Pressure 168/95 H 08/31/17 13:52 O2 Sat (%) 90 L 08/31/17 13:52 O2 Delivery Mode Room Air Allergies/Adverse Reactions: iodine Allergy (Verified 08/23/17 20:40) Home Medications: Medication Instructions Recorded Albuterol [Proventil Inhaler HFA 2 puffs IH Q4H PRN 06/12/17 (*)] Cholecalciferol Vit D3 [Vitamin D3 1,000 units PO DAILY 06/12/17 (*)] Escitalopram Oxalate [Lexapro 10 10 mg PO DAILY 06/12/17 MG] Finasteride [Proscar 5 MG (*)] 5 mg PO DAILY 06/12/17 Propranolol HCl 80 mg PO BID 06/12/17 SUMAtriptan [Imitrex 50 MG (*)] 50 mg PO Q23H PRN 06/12/17 Sennosides [Senokot] 1 each PO BID PRN 06/12/17 clonazePAM [Klonopin (*)] 0.5 mg PO BID 06/12/17 Melatonin [Melatonin 3 MG (*)] 3 mg PO HS #30 tab 07/11/17 Acetaminophen [Tylenol 325mg (*)] 650 mg PO Q6HRS PRN 08/31/17 Tiotropium Inhaler [Spiriva 18 mcg IH DAILY 08/31/17 Handihaler] Departure - Departure Disposition: [facility] Inpatient Acute Clinical Impression: Pneumonia Qualifiers: Pneumonia type: due to unspecified organism Laterality: right Lung location: upper lobe of lung Qualified Code(s): J18.1 - Lobar pneumonia, unspecified organism Left wrist fracture Qualifiers: Encounter type: sequela Fracture type: closed Qualified Code(s): S62.102S - Fracture of unspecified carpal bone, left wrist, sequela Condition: Fair Report Scribed for: Stephon Mckenna Report Scribed by: Subha Robbins Date of Report: 08/31/17 Time of Report: 13:26 Physician Review and Approval Statement: Portions of this note were transcribed by an ED scribe. I personally performed the history, physical exam, and medical decision making; and confirm the accuracy of the information in the transcribed note.
--- NOTE | 2017-08-31 13:29 | CPEKG ---
Heart Rate: 56 RR Interval: 1071 P-R Interval: 204 QRSD Interval: 98 QT Interval: 492 QTC Interval: 475 P Killeen: 76 QRS Killeen: -18 T Wave K[place]: 91 EKG Severity - BORDERLINE ECG - EKG Impression: SINUS RHYTHM EKG Impression: PROBABLE LEFT ATRIAL ABNORMALITY EKG Impression: BORDERLINE LEFT AXIS DEVIATION Electronically Signed By: Brad Haywood 01-Sep-2017 20:30:03
[2017-08-31 13:49] LABS: PLATELET COUNT 164 10^3/uL (150-400)
[2017-08-31] MEDS ORDERED: ALBUTEROL 3 ML DEYVIAL IH PRN (17:10)
[2017-08-31] MEDS: 1/2 NS 1,000 ML IV SCH (17:26)
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
--- NOTE | 2017-08-31 18:53 | PDMN ---
Medical Necessity Medical necessity: C/M review: Patient meets INPT criteria under [facility] M-253 Pneumnonia due to aspiratrion, M-282 Pneumonia community acquired: Acute and persistent right upper lobe pneumonia, aspiration versus healthcare acquired, WBC 13.90, hypernatremia, Na 153, bradycardia, heart rate 50-59 requiring ongoing IV Zosyn Q 8 hrs.,IV fluids, cardiac monitoring, pulse oximetry, acute PT/OT/ST, comorbid prior left wrist fracture present on admit, dementia, deafness, COPD. MD anticipates > 2 MN LOS for ongoing med nec for eval and TX of above. Patient is Medicare Advantage which follows guidelines put forth by CMS.
[2017-08-31] MEDS: MELATONIN 3 MG TAB PO SCH (20:18)
[2017-08-31] MEDS: clonazePAM 0.5 MG TAB PO SCH (20:19)
[2017-08-31] MEDS ORDERED: PROPRANOLOL HCL 40 MG TAB PO SCH (21:00)
[2017-08-31] MEDS: PIPERACILLIN/TAZO 4.5 GM/DEX 100 ML IV SCH (22:13)
[2017-09-01 04:47] LABS: PLATELET COUNT 125 10^3/uL (150-400)
[2017-09-01] MEDS: PIPERACILLIN/TAZO 4.5 GM/DEX 100 ML IV SCH ×3 (05:42→21:12)
--- NOTE | 2017-09-01 08:53 | HOSPPROG ---
Hospitalist Progress Note Assessment/Plan: 1. RUL infiltrate- possible aspiration PNA -IV abx, pip/bishop, Bd Cx pending, flu neg -LAMINATION INSPECTOR eval, swallow study -pulm toilet as able -O2 support as needed 2. Bradycardia -hold b blockers -tsh nl -difficult to know if symptomatic 3. Dementia with possible acute worsening/encephalopathy due to infection/ possible dehydration -hopefully family will come in to help with assessment of baseline 4. Deaf -appreciate interpretors availabilty 5. Hypernatremia -mild, gentle IF hydration 6. L wrist fracture -in splint -needs surgical repair per ortho when stable (as outpt) DISPO > 2 mdnts due to multiple med co-morbids, IV abx, assessment of feeding/ risks FULL CODE- AD scanned in DVT prophy- krishnanox PCP [facility] resident but concern from family re care, CM assisting Subjective: Sign language interpretor, no family at bedside. Sleeping most of day (I checked on him several times) but awakens with gentle nudge. Unable to answer questions (unsure re baseline with dementia). Did eat per nursing. Objective: Vital Signs Temp Pulse Resp BP Pulse Ox 97.2 F 43 L 8 L 104/53 L 96 09/01/17 07:52 09/01/17 07:52 09/01/17 07:52 09/01/17 07:52 09/01/17 07:52 Laboratory Results 09/01/17 04:20 09/01/17 04:20 08/30/17 08/31/17 09/01/17 11:59 11:59 11:59 Intake Total 850 Balance 850 - Time Spent With Patient Time Spent with Patient: greater than 35 minutes Time Spent with Patient: Greater than 35 minutes spent on this patients care, greater than 50% of time spent counseling, educating, and coordinating care regarding the above mentioned plan. - Pending Discharge Pending Discharge Within 48 Hours: No - Physical Exam Constitutional: unkempt, cachectic, other (sleeping but arouses easily) Ears, Nose, Mouth, Throat: dry mucous membranes Cardiovascular: regular rate and rhythym, tachycardia Respiratory: no rales or rhonchi, reduced air movement, other (wet cough), No expiratory wheeze, No respiratory distress Gastrointestinal: normoactive bowel sounds, soft, non-tender abdomen, No guarding, No rebound Skin: warm Musculoskeletal: other (CHANDLER) Psychiatric: agitated, other (dementia, deaf) ICD10 Worksheet Patient Problems: Problems Problem Status Onset Left wrist fracture Acute Pneumonia Acute SINA (acute kidney injury) Acute Fall Acute Generalized weakness Acute Pyelonephritis, acute Acute
[2017-09-01] MEDS ORDERED: PROPRANOLOL HCL 40 MG TAB PO SCH (09:00)
[2017-09-01] MEDS: TIOTROPIUM INHALER 18 MCG/DOSE 5 DOSE/MDI IH SCH (09:58)
[2017-09-01] MEDS: ENOXAPARIN 40 MG/0.4 ML SYR SC SCH (10:06)
[2017-09-01] MEDS: ESCITALOPRAM OXALATE 10 MG TAB PO SCH (10:07)
[2017-09-01] MEDS: FINASTERIDE 5 MG TAB PO SCH (10:07)
[2017-09-01] MEDS: clonazePAM 0.5 MG TAB PO SCH ×2 (10:07→21:11)
[2017-09-01] MEDS: 1/2 NS 1,000 ML IV SCH (11:52)
[2017-09-01] MEDS ORDERED: PROTOCOL CALCIUM 1 DOSE IV PRN (18:07)
[2017-09-01] MEDS ORDERED: PROTOCOL MAGNESIUM 1 DOSE IV PRN (18:07)
[2017-09-01] MEDS ORDERED: PROTOCOL POTASSIUM 1 DOSE MISC PRN (18:07)
[2017-09-01] MEDS: D5W 1/2 NS W/ 20 KCl/L 1,000 ML IV SCH (19:48)
[2017-09-01] MEDS: ACETAMINOPHEN 325 MG TAB PO PRN (19:52)
[2017-09-01] MEDS ORDERED: POTASSIUM CL 20 MEQ TAB PO ONE (20:38)
[2017-09-01] MEDS: MELATONIN 3 MG TAB PO SCH (21:11)
[2017-09-01] MEDS ORDERED: POTASSIUM CL 20 MEQ/15 ML UDCUP PO ONE (21:15)
[2017-09-02] MEDS: D5W 1/2 NS W/ 20 KCl/L 1,000 ML IV SCH (05:14)
[2017-09-02] MEDS: PIPERACILLIN/TAZO 4.5 GM/DEX 100 ML IV SCH ×3 (05:14→22:05)
[2017-09-02] MEDS: TIOTROPIUM INHALER 18 MCG/DOSE 5 DOSE/MDI IH SCH (08:51)
[2017-09-02] MEDS ORDERED: POTASSIUM CL 10 MEQ TAB PO ONE ×2 (09:28→22:37)
[2017-09-02] MEDS: clonazePAM 0.5 MG TAB PO SCH ×2 (09:37→20:37)
[2017-09-02] MEDS: FINASTERIDE 5 MG TAB PO SCH (09:37)
[2017-09-02] MEDS: ESCITALOPRAM OXALATE 10 MG TAB PO SCH (09:37)
[2017-09-02] MEDS: ENOXAPARIN 40 MG/0.4 ML SYR SC SCH (12:19)
[2017-09-02] MEDS ORDERED: POTASSIUM CL 20 MEQ/15 ML UDCUP PO ONE (13:30)
--- NOTE | 2017-09-02 15:40 | HOSPPROG ---
Hospitalist Progress Note Assessment/Plan: 1. RUL infiltrate- possible aspiration PNA -IV abx, pip/bishop, Bd Cx NTD so likely switch to PO soon, flu neg -RISK MGR eval, swallow study today as more awake/alert -pulm toilet as able -O2 support as needed 2. Bradycardia,? asymptomatic -hold b blockers, now 40-50s today -tsh nl -cardiology consulted and echo ordered (Dr Mclean) 3. Dementia with possible acute worsening/encephalopathy due to infection/ possible dehydration -difficult to assess baseline -left detailed message for daughter 4. Deaf -appreciate interpretors availabilty 5. Hypernatremia/hypoK -mild, gentle IVF hydration -replace per protocol 6. L wrist fracture -in splint -needs surgical repair per ortho when stable (as outpt) -cardiology consulted for surgical clearance too -taking off splint, asked RN to try to stabilize in a diff way as able 7. Anemia -follow, check iron levels DISPO > 2 mdnts due to multiple med co-morbids, IV abx, assessment of feeding/ risks FULL CODE- AD scanned DVT prophy- lovenox PCP- [facility] pt [place] resident but concern from family re care, CM assisting Subjective: Called daughter Cary, no answer. Left detailed update message. Used interpretor, says pain in L wrist. Denies dizziness/LH. Ate well per RN. Objective: Vital Signs Temp Pulse Resp BP Pulse Ox 97.8 F 44 L 16 133/83 H 92 09/02/17 12:00 09/02/17 12:00 09/02/17 12:00 09/02/17 12:00 09/02/17 11:12 Laboratory Results 09/02/17 04:10 09/02/17 04:10 09/01/17 09/02/17 09/03/17 11:59 11:59 11:59 Intake Total 850 2072 Output Total 300 Balance 850 1772 - Time Spent With Patient Time Spent with Patient: greater than 35 minutes Time Spent with Patient: Greater than 35 minutes spent on this patients care, greater than 50% of time spent counseling, educating, and coordinating care regarding the above mentioned plan. - Pending Discharge Pending Discharge Within 24 Hours: No - Physical Exam Constitutional: no apparent distress, chronically ill appearing Ears, Nose, Mouth, Throat: moist mucous membranes Cardiovascular: regular rate and rhythym, bradycardia Respiratory: no respiratory distress, no rales or rhonchi, clear to auscultation , other (improved compared to yesterday, still with wet cough but less frequent) Gastrointestinal: normoactive bowel sounds, soft, non-tender abdomen, No guarding, No rebound Skin: warm Psychiatric: flat affect, poor insight, poor memory, other (was responsive to interpretor today- improved) ICD10 Worksheet Patient Problems: Problems Problem Status Onset Left wrist fracture Acute Pneumonia Acute SINA (acute kidney injury) Acute Fall Acute Generalized weakness Acute Pyelonephritis, acute Acute
--- NOTE | 2017-09-02 16:57 | ECHO ---
[email or web address] [address] [address] Main: [phone] Fax: Transthoracic Echocardiogram Name: MICHAEL CORDOBA MR#: [id number] Study Date: 09/02/2017 Study Time: 01:16 PM Date of : 1940 Age: 77 year(s) Height: 190.5 cm (75 in.) Weight: 77.11 kg (170 lb.) BSA: 2.05 m2 Gender: Male Examination: Echo Indication: Bradycardia/needs wrist surgery clearance Image Quality: Contrast: Requested by: Laverne Flores BP: 133 mmHg/83 mmHg Heart Rate: Rhythm: Indication: Bradycardia/needs wrist surgery clearance Procedure Staff Cloth Bleaching Range Tender: Claudine Astorga Physician: Martínez Armenta Requesting Provider: Conclusions: Normal size left ventricle. Mild concentric LV hypertrophy. The left atrium is normal in size. Trivial mitral valve regurgitation. Trivial to mild tricuspid valve regurgitation. Trivial anterior pericardial effusion. Measurements: Chambers Valvular Assessment AV/MV Valvular Assessment TV/PV Normal Normal Normal Name Value Range Name Value Range Name Value Range Ao Lola (MM): 4.4 cm (2.2 cm-3.7 AV Vmax: 0.96 m/s (1 m/s-1.7 cm) m/s) AV maxP mmHg ( - ) MV E Vmax: 0.35 m/s ( - ) MV A Vmax: 0.61 m/s ( - ) MV E/A: 0.57 ( - ) Continued Measurements: Chambers Valvular Assessment AV/MV Name Value Name Value LADs: 4.8 cm MV E/E' Lateral: 9.50 Findings: Left Ventricle: Normal size left ventricle. Mild concentric LV hypertrophy. Left Atrium: Patient: MICHAEL CORDOBA Study Date: 09/02/2017 Page 1 of 2 01:16 PM The left atrium is normal in size. Mitral Valve: The mitral valve is normal in appearance. Trivial mitral valve regurgitation. Aortic Valve: Trivial aortic valve regurgitation. Tricuspid Valve: The tricuspid valve appears normal. Trivial to mild tricuspid valve regurgitation. Pericardium: Trivial anterior pericardial effusion. (No Signature Object) Patient: MICHAEL CORDOBA Study Date: 09/02/2017 Page 2 of 2 01:16 PM [id number]
[2017-09-02] MEDS: MELATONIN 3 MG TAB PO SCH (20:37)
[2017-09-02] MEDS ORDERED: POTASSIUM CL 10 MEQ TAB ONE (22:40)
[2017-09-03] MEDS: D5W 1/2 NS W/ 20 KCl/L 1,000 ML IV SCH (02:33)
[2017-09-03] MEDS: PIPERACILLIN/TAZO 4.5 GM/DEX 100 ML IV SCH ×3 (05:35→22:15)
[2017-09-03] MEDS ORDERED: POTASSIUM CL 10 MEQ TAB PO ONE ×2 (08:52→22:16)
[2017-09-03] MEDS ORDERED: MAGNESIUM SULF 1 GM/DEXTROSE 100 ML IV ONE (08:56)
[2017-09-03] MEDS: TIOTROPIUM INHALER 18 MCG/DOSE 5 DOSE/MDI IH SCH (09:29)
[2017-09-03] MEDS: amLODIPine BESYLATE 5 MG TAB PO SCH (09:47)
[2017-09-03] MEDS: FINASTERIDE 5 MG TAB PO SCH (09:48)
[2017-09-03] MEDS: ENOXAPARIN 40 MG/0.4 ML SYR SC SCH ×2 (09:48→10:08)
[2017-09-03] MEDS: clonazePAM 0.5 MG TAB PO SCH ×2 (09:48→19:58)
[2017-09-03] MEDS: ESCITALOPRAM OXALATE 10 MG TAB PO SCH (09:49)
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
--- NOTE | 2017-09-03 16:27 | HOSPPROG ---
Hospitalist Progress Note Assessment/Plan: 1. RUL infiltrate- possible aspiration PNA -IV abx, pip/bishop, Bd Cx NTD so likely switch to PO soon, flu neg -HEEL PADDER eval, swallow study done, following diet recs -O2 support as needed 2. Bradycardia,? asymptomatic -hold b blockers, > 50s now -tsh nl -cardiology consult/echo done but per ortho not appropriate for surgical repair 3. Dementia with possible acute worsening/encephalopathy due to infection/ possible dehydration -difficult to assess baseline -left detailed message for daughter yesterday -ethics consult done as need MD GARRISON as daughter with open CPS case per notes 4. Deaf -appreciate interpretors availabilty 5. Hypernatremia/hypoK -mild, gentle IVF hydration -replace per protocol 6. L wrist fracture -won't keep splint on -spoke with Dr Wei's PA, she will come to eval for cast need as says unlikely surgery 7. Anemia -follow -iron levels OK 8. HTN -norvasc, may need to titrate up/add agents DISPO > 2 mdnts due to multiple med co-morbids, IV abx, pending ethics/?need for guardian or MDPOA FULL CODE- AD scanned but see above re MDPOA DVT prophy- lovenox PCP- [facility] pt [place] resident but concern from family re care, CM assisting Subjective: More alert/awake today. Answers simple questions via interpretor. Denies pain today. Trying to get up out of chair with arms, brace off. Objective: Vital Signs Temp Pulse Resp BP Pulse Ox 97.6 F 72 16 240/90 H 94 09/03/17 12:00 09/03/17 13:30 09/03/17 12:00 09/03/17 13:30 09/03/17 13:30 Laboratory Results 09/03/17 05:44 09/03/17 05:44 09/02/17 09/03/17 09/04/17 11:59 11:59 11:59 Intake Total 2072 2450 Output Total 300 Balance 1772 2450 - Time Spent With Patient Time Spent with Patient: greater than 35 minutes Time Spent with Patient: Greater than 35 minutes spent on this patients care, greater than 50% of time spent counseling, educating, and coordinating care regarding the above mentioned plan. - Physical Exam Constitutional: no apparent distress, not in pain Eyes: anicteric sclera Ears, Nose, Mouth, Throat: moist mucous membranes, hard of hearing (deaf) Cardiovascular: regular rate and rhythym, No edema Respiratory: no respiratory distress, no rales or rhonchi, clear to auscultation , other (minnimal cough) Gastrointestinal: normoactive bowel sounds, soft, non-tender abdomen, No guarding, No rebound, No distension Skin: warm Psychiatric: poor insight, poor memory, No agitated ICD10 Worksheet Patient Problems: Problems Problem Status Onset Left wrist fracture Acute Pneumonia Acute SINA (acute kidney injury) Acute Fall Acute Generalized weakness Acute Pyelonephritis, acute Acute
--- NOTE | 2017-09-03 17:04 | SOAPPROG ---
SOAP Progress Note Assessment/Plan: Assessment: Han is a 77 year old male who presented to the Emergency department on 08/31/17 due to lethargy. He was found to have pneumonia and was admitted to the hospitalist service. Patient sustained a left distal radius fracture approximately one week prior to admission. He was placed in a splint at that time which he subsequently removed. The splint was replaced upon admission, however, he removed that splint as well. He has dementia and will not remain in the splint. Manager Strategy & Account was present in the room upon evaluation of the patient. The patient does not complain of any wrist pain. When asked about the splint he reports " I will not wear it, I do not need it." PE: Mild swelling of the left wrist TTP overlying the distal radius No pain with gentle wrist flexion and extension NV intact LUE Plan: I discussed options with Han including placing a short arm fiberglass cast. He is refusing to allow me to place him in the cast. I discussed a removable splint, however, he is refusing that as well. I have contacted his daughter, Ashley (power of carbonizer), and left a message on her voicemail including my contact information. I have discussed this case with Dr. Wei. We will not place him in the cast due to his refusal. He is currently comfortable without immobilization. We have advised him not to put weight on the left upper extremity. We would not recommend operative intervention due to patient's noncompliance with immobilization and noncompliance with non weight bearing status. We will follow up with this patient on an outpatient basis and plan on conservative treatment. 09/03/17 16:50 09/03/17 17:05 09/03/17 17:39 Objective: Vital Signs Temp Pulse Resp BP Pulse Ox 36.4 C 72 16 240/90 H 94 09/03/17 12:00 09/03/17 13:30 09/03/17 12:00 09/03/17 13:30 09/03/17 13:30 Laboratory Results 09/03/17 05:44 09/03/17 05:44 09/02/17 09/03/17 09/04/17 05:59 05:59 05:59 Intake Total 672 3850 Output Total 300 Balance 372 3850 ICD10 Worksheet Patient Problems: Problems Problem Status Onset Left wrist fracture Acute Pneumonia Acute SINA (acute kidney injury) Acute Fall Acute Generalized weakness Acute Pyelonephritis, acute Acute
[2017-09-03] MEDS: MELATONIN 3 MG TAB PO SCH (19:58)
[2017-09-03] MEDS ORDERED: HALOPERIDOL 0.5 MG TAB PO ONE (22:39)
[2017-09-04] MEDS: PIPERACILLIN/TAZO 4.5 GM/DEX 100 ML IV SCH ×3 (05:18→21:52)
[2017-09-04] MEDS: amLODIPine BESYLATE 5 MG TAB PO SCH (07:32)
[2017-09-04] MEDS ORDERED: POTASSIUM CL 10 MEQ TAB PO ONE (07:52)
[2017-09-04] MEDS: clonazePAM 0.5 MG TAB PO SCH ×2 (09:31→21:52)
[2017-09-04] MEDS: FINASTERIDE 5 MG TAB PO SCH (09:40)
[2017-09-04] MEDS: ENOXAPARIN 40 MG/0.4 ML SYR SC SCH (09:47)
[2017-09-04] MEDS: TIOTROPIUM INHALER 18 MCG/DOSE 5 DOSE/MDI IH SCH (10:17)
[2017-09-04] MEDS ORDERED: POTASSIUM CL 20 MEQ/15 ML UDCUP PO ONE (10:45)
[2017-09-04] MEDS: ESCITALOPRAM OXALATE 10 MG TAB PO SCH (11:21)
--- NOTE | 2017-09-04 11:54 | HOSPPROG ---
Hospitalist Progress Note Assessment/Plan: Patient is a 77-year-old male who resides at [facility]. He was admitted with weakness lethargy and confusion. He fractured his wrist approximately a week ago /is wearing a splint. He needs surgery in the next 2 weeks. He has been refusing to wear the splint. Today a STAT team called, patient had a heart rate of 160. Unclear if he was in rapid AFib or SVT. Over several minutes and getting him back to bed heart rate decreased to 110 and is a sinus tachycardia. Patient is unable to tell me if he is having pain or short of breath. Per the nursing staff he had a large bout of emesis. Will get a stat chest x-ray, stat abdominal x-ray, arterial blood gas, an EKG. Will transfer him to PCU for a higher level of care. * right upper lobe infiltrate possible aspiration pneumonia -blood cultures no growth to date -concern he still aspirating -will get a repeat chest x-ray now * large bout of emesis -unable to get information from the patient been through a tech writer if he is having any pain or nausea -will get an abdominal x-ray to rule out any type of obstruction * tachycardia -initially was atrial fibrillation with RVR and then SVT -now having some sinus tachycardia- will transfer to PCU Yesterday had some bradycardia, his beta-juliano had been stopped, likely causing the tachycardia today -previous provider spoke w cardiology/ they are to see * dementia with possible worsening encephalopathy -ethics evaluated patient and noted he is not decisional; for now his daughter is medical power of machine packager -awaiting from Adult protective Services to get further info, case management actively involved with the situation * deaf -hot strip finisher is at the bedside. The patient does not interact much with her * hypernatremia, hypokalemia * left wrist fracture -previous provider spoke with Dr. solorzano's physician assistant corporate controller the to evaluate for cast placement * anemia * hypertension -increased his Norvasc dose *plan: transfer to PCU for closer monitoring, spoke with cardiology; they will see him. Will give him Lopressor IV with parameters. Palliative care ordered. Called his daughter Ashley and updated her on the plan of care. There is a meeting for 10:00 a.m. tomorrow. Subjective: Patient is unable to give me much information even though there is a sign hot strip finisher in the room. Objective: Vital Signs Temp Pulse Resp BP Pulse Ox 36.7 C 84 18 142/97 H 95 09/04/17 11:19 09/04/17 11:19 09/04/17 11:19 09/04/17 11:19 09/04/17 11:19 Laboratory Results 09/03/17 05:44 09/04/17 05:06 09/03/17 09/04/17 09/05/17 05:59 05:59 05:59 Intake Total 3850 118 Balance 3850 118 - Physical Exam Constitutional: chronically ill appearing, other (Very thin) Eyes: PERRL Ears, Nose, Mouth, Throat: hearing normal Cardiovascular: tachycardia Respiratory: no respiratory distress, reduced air movement Skin: warm, No normal color (Pale in color) Musculoskeletal: generalized weakness Neurologic: other (Alert) ICD10 Worksheet Patient Problems: Problems Problem Status Onset Pyelonephritis, acute Acute Fall Acute SINA (acute kidney injury) Acute Generalized weakness Acute Left wrist fracture Acute Pneumonia Acute
--- NOTE | 2017-09-04 12:04 | WOCRNPDOC ---
WOCRN Advanced Assessment Note - Skin Integrity Problem, Advanced Assess Left Lower Lateral Arm Pressure Injury Dressing Type: Open to Air Site Measurement - Head-to-Toe Length X Width X Depth (cm): 1x1x0 Pressure Injury Stage: Stage 1, Hand Deicer Element Winder Related Pressure Injury Pressure Injury Present on Admit: No Skin Integrity Problem Comment: Coban over peripheral IV tubing. Wound care will sign off. Will resolve without pressure. Also a small Category 2a skin tear present. No concerns. Treat per skin tear policy.
--- NOTE | 2017-09-04 12:21 | CPEKG ---
Heart Rate: 95 RR Interval: 632 P-R Interval: 200 QRSD Interval: 94 QT Interval: 352 QTC Interval: 443 P [place]: 68 QRS [place]: -44 T Wave [place]: 132 EKG Severity - ABNORMAL ECG - EKG Impression: SINUS TACHYCARDIA EKG Impression: MULTIPLE ATRIAL PREMATURE COMPLEXES EKG Impression: LVH WITH SECONDARY REPOL ABNRM EKG Impression: PROBABLE INFERIOR INFARCT, AGE INDETERMINATE EKG Impression: ST DEPRESSION, CONSIDER ISCHEMIA, ANT-LAT LDS Electronically Signed By: Oliver Vann 04-Sep-2017 15:25:42
[2017-09-04] MEDS: POTASSIUM Cl (KCl) 10 MEQ in NS 100 ML IV SCH ×2 (13:15→14:50)
--- NOTE | 2017-09-04 14:12 | ASMTCMCOM ---
CM Note CM Note Notes: Pt. was transfered to PCU today due to heightened medical needs. Note: Pt. not decisional. Pt. deaf and mute since childhood. ASL interpreters here. SW colleague did not hear back from APS yesterday. SWer called again today. APS main linecasting machine keyboard operator stated she would try to have assigned worker call SWer. SWer spoke w/ daughter Cary on phone today. Discussed her stressors and APS report. Cary denies any financial malfeasance and wanted to know status of father's medical situation. Referred Cary to for an update. Cary states she is Pt's financial POA, but not official medical POA. Kylee Aly came to do Ethics consult. Kylee establised Cary as medical proxy decision maker for the time being. Eventually worker left SWer a msg - Arron Christina . Arron stated Informatica Mdm Architect is tracking down bank statements due to accusations related to financial exploitation. SWer left return msg to find out if there is any reason [facility] cannot rely on dtr as medical proxy decision maker. Awaiting his response. Going forward as if dtr is proxy decision maker. Palliative Care consulted by Hospitalist and team set up palliative consultation with dtr Cary for tomorrow, Friday09/05/17 at 10:00. SWer plans to attend. Note: Pt. is still Full Code. D/c plan at this time: [facility] vs Inpatient Hospice vs SNF hospice Date Signed: 09/04/2017 02:11 PM Electronically Signed By:Milagro Gutierrez LCSW
--- NOTE | 2017-09-04 15:00 | GCON ---
[f rep st] CONSULTATION CARDIOLOGY CONSULTATION DATE OF CONSULTATION: 09/04/2017 PRIMARY CARE PHYSICIAN: Rafael Sotomayor DO REASON FOR CONSULTATION: We were asked by Mira Bailey of Hospital Medicine to evaluate the patie nt for his possible SVT from earlier today. HISTORY OF PRESENT ILLNESS: The patient is a 77-year-old male, who has dementia, deafness and COPD w bev was admitted from [facility] for weakness, lethargy, confusion and a wrist fracture. Apparentl y, he had a fall at his rehab facility 2 weeks prior to admission. He was admitted to the [facility] to his confusion. Apparently, it is unclear what his baseline mentation is. Cardiology has been a sked to see him now on a total of 2 occasions. The first was due to bradycardia with heart rates in what appears to be 40s in sinus rhythm. After cessation of his propranolol, this has resolved. When cardiology tried to visit with patient, the patient was unarousable. We are once again consulted for what is being called SVT. No strips are available on the chart. Telemetry is unremarkable due to jasper rodriguez being transferred from a different floor. The patient again is asleep and is unarousable. Upo n review of chart notes, it is documented that he was asymptomatic with his episode of what is docume nted as SVT at a rate of 160. PAST MEDICAL HISTORY: 1. Dementia. 2. Deafness. 3. BPH. 4. COPD. PAST SURGICAL HISTORY: None are listed. OUTPATIENT MEDICATIONS: Include Senokot, propranolol, Klonopin, Spiriva, vitamin D3, melatonin, sang steride, Lexapro, sumatriptan, albuterol and Tylenol. ALLERGIES: Iodine. SOCIAL HISTORY: The patient is a resident of [facility]. He is listed as a former smoker. REVIEW OF SYSTEMS: Unobtainable. PHYSICAL EXAM: VITAL SIGNS: Blood pressure 129/97, heart rate 95, respirations 14, O2 saturation 97 % on 4.5 L/minute, temperature of 98 degrees. GENERAL: He is an elderly, cachectic male, asleep. HE ART: Regular rate and rhythm. LUNGS: Clear in the anterior nguyen. SKIN: Warm and dry. LABORATORY DATA: CBC with WBC 5.71, hemoglobin 11.5, hematocrit 32.9, platelet count of 134. BMP wit h sodium 147, potassium 3.6, chloride 107, CO2 24, BUN 23, creatinine 1.3, glucose of 136. Telemetry reviewed shows sinus rhythm. A 12-lead ECG from 09/04/2017 at 12 o'clock shows sinus rhythm, with oc casional PACs, 1st degree AV block, LAFB and diffuse ST-T wave abnormalities, LVH by voltage. On 04/2018, echocardiogram done in this admission shows normal LV size, LVEF does not appear to be docume nted. There is mild LVH, normal left atrial size, trivial MR, trivial to mild TR, trivial anterior p ericardial effusion. IMPRESSION AND PLAN: The patient is a 77-year-old male, who is admitted with confusion with unclear baseline mentation. 1. Possible supraventricular tachycardia. No strips are available at this time for review. He has no evidence of pre-excitation on his 12-lead ECG. It is unclear whether patient is symptomatic with this. We will change his amlodipine, that was started in this admission for hypertension, to diltiaz em. This will be given at a low dose as patient has had bradycardia on propranolol and diltiazem as an AV davian agent. Given that his confusion currently seems pretty severe, we would not recommend an y aggressive cardiac procedures with this patient. 2. Bradycardia. This is unclear whether symptomatic or not. Currently, heart rates are improved and was likely a result of propranolol which has now been metabolized by his system. No further workup recommended. /[id number]/MODL
[2017-09-04] MEDS: DILTIAZEM 30 MG TAB PO SCH ×2 (16:19→21:51)
[2017-09-04] MEDS ORDERED: D5W 1/2 NS 1,000 ML IV SCH (17:45)
[2017-09-04] MEDS: ONDANSETRON 4 MG/2 ML VIAL IVP PRN (17:53)
[2017-09-04] MEDS: METOPROLOL TARTRATE 5 MG/5 ML INJ IVP SCH (17:53)
[2017-09-04] MEDS: MELATONIN 3 MG TAB PO SCH (21:52)
[2017-09-05] MEDS: ONDANSETRON 4 MG/2 ML VIAL IVP PRN (00:43)
[2017-09-05] MEDS: METOPROLOL TARTRATE 5 MG/5 ML INJ IVP SCH ×3 (01:18→17:57)
[2017-09-05] MEDS ORDERED: LIDOCAINE 2% JELLY 20 ML (UROJECT) ONE ×4 (01:56→07:44)
[2017-09-05] MEDS ORDERED: LIDOCAINE 2% JELLY 20 ML (UROJECT) UR ONE ×2 (02:00→04:45)
[2017-09-05] MEDS: TIOTROPIUM INHALER 18 MCG/DOSE 5 DOSE/MDI IH SCH (08:29)
[2017-09-05] MEDS: PIPERACILLIN/TAZO 4.5 GM/DEX 100 ML IV SCH ×3 (08:42→21:58)
--- NOTE | 2017-09-05 08:45 | PDCONSULT ---
Weighbridge Operator Note: Consult request by Dr. Hernandez difficult larose, urinary retention HPI 77M deaf, COPD admitted for PNA with hx BPH and unable to void. Nurses tried multiple times without success. Urology called for larose placement. ROS +Pain PMH COPD, BPH, PNA FH/SH noncontributory PE AF Gen TULALIP, in discomfort due to urinary retention CV regular Lungs normal effort Abd palpable bladder blood at urethral meatus Procedure: Using sterile technique, I gently attempted placement of a 12F silicone, but not able to pass. I then tried to advance a glidewire but wire would not advance past prostate. I then proceed to further drape him for bedside cystoscopy. I advanced the cystoscope into the urethral meatus and up to an area of false passages. I was able to find the true lumen and advance the scope into the bladder. It was challenging to find the true lumen. There was no blood in the bladder. A wire was passed into the bladder and the scope removed leaving the wire in place. A 16F [place] tip was advanced over the wire with return of dark clear urine, no clots. The balloon was inflated to 10ml NS. I irrigated out 300ml of clear dark urine. Larose hooked to stat lock. Procedure considered complete. He tolerated the procedure well. A/P urinary retention due to BPH and difficult larose due to BPH and multiple false passages from prior larose attempts Continue larose for at least 1 week to allow false passages to heal. Please do not remove before 1 week as larose catheter placement was very challenging. Shayna Rivas MD [facility].
[2017-09-05] MEDS: ENOXAPARIN 40 MG/0.4 ML SYR SC SCH (12:02)
--- NOTE | 2017-09-05 13:50 | HOSPPROG ---
Hospitalist Progress Note Assessment/Plan: Patient is a 77-year-old male who resides at [facility]. He was admitted with weakness lethargy and confusion. He fractured his wrist approximately a week ago /is wearing a splint. He needs surgery in the next 2 weeks. He has been refusing to wear the splint. Today a STAT team called, patient had a heart rate of 160. Unclear if he was in rapid AFib or SVT. Over several minutes and getting him back to bed heart rate decreased to 110 and is a sinus tachycardia. Patient is unable to tell me if he is having pain or short of breath. Per the nursing staff he had a large bout of emesis. Will get a stat chest x-ray, stat abdominal x-ray, arterial blood gas, an EKG. 09/05 plan is for hospice are right upper lobe infiltrate possible aspiration pneumonia still on ab- will discuss thi w family given above large bout of emesis none further tachycardia resolved dc meds given above dementia with possible worsening encephalopathy ethics evaluated patient and noted he is not decisional; for now his daughter is medical power of defense attorney hospice historical interpreter is at the bedside. The patient does not interact much with her hypernatremia, hypokalemia dc lyte protocol left wrist fracture add scheduled tylenol swelling noted, he is moving it around w/out grimacing anemia hypertension dc meds Subjective: case d/w palliative care CITY MAINTENANCE MANAGER Puening. plan is for hospice care Objective: Vital Signs Temp Pulse Resp BP Pulse Ox 36.4 C 83 18 120/64 99 09/05/17 12:00 09/05/17 12:00 09/05/17 12:00 09/05/17 12:00 09/05/17 12:00 Laboratory Results 09/03/17 05:44 09/05/17 04:14 09/04/17 09/05/17 09/06/17 05:59 05:59 05:59 Intake Total 118 520 Output Total 501 Balance 118 19 - Physical Exam Constitutional: no apparent distress, appears nourished Eyes: PERRL, anicteric sclera Ears, Nose, Mouth, Throat: moist mucous membranes, hearing normal Cardiovascular: regular rate and rhythym, no murmur, rub, or gallop Respiratory: no respiratory distress Gastrointestinal: normoactive bowel sounds Genitourinary: larose in urethra, other (light red urine in larose) Skin: warm, normal color Musculoskeletal: full muscle strength Neurologic: No AAOx3 ICD10 Worksheet Patient Problems: Problems Problem Status Onset Left wrist fracture Acute Pneumonia Acute SINA (acute kidney injury) Acute Fall Acute Generalized weakness Acute Pyelonephritis, acute Acute
--- NOTE | 2017-09-05 14:35 | PDPCPN ---
Palliative Care Progress Note Assessment/Plan: Referring provider: Mira Bailey Reason for consult: Complex medical decision making Symptom control HPI: Han Solis is a 77 yo with PMH dementia, COPD, BPH, has been deaf and mute since 1 year old admitted to the hospital for increased confusion, lethargy. Found to have possible aspiration PNA being treated with IV fluids and antibiotics. Speech seen and VFSS with moderate dysphagia rec nectar thick and pureed diet. Hospitalization complicated by bradycardia and tachycardia, emesis without known cause, as well as severe urinary obstruction 2/2 BPH s/p larose insertion. Recent fall with wrist fracture prior to hospitalization. palliative care consulted for complex medical decision making. Met with daughter Cary, granddaughter and her boyfriend outside of the room. Cary shared her dad began to decline in 2014 when he had a suicide attempt and was hospitalized for 10 weeks. This was very unusual for him as he always had a "go getter" and positive attitude throughout his life. Since then she has been caring for him at his home and at times at her home. She has noticed over the past 3 years a decline in his cognition and decline in status. He was placed into a senior care when he needed more care then could be provided at home. Per daughter she has noticed the decline more dramatically since then losing a large amount of weight, not getting out of bed, coughing with liquids, and not being interested in activities. She describes him as a very intelligent person who was always building something or trying to break a barrier. He has been deaf since the age of 1 and started many program and had many accomplishments that were not "normal" for a deaf person to overcome. She states she has had many conversations with her father about his end of life wishes and he had never wanted to extend a poor quality of life. She states he always was very independent and valued his intellect. She does not feel like his current status is consistent with a good quality of life for him and states "if he were able to , he would not want to live like this". We discussed comfort care and hospice care as well as code status. She would like him to be as comfortable as possible for whatever time he has left. She prefers him to not return back to [facility] and is interested in [facility] care. Assessment: Physical: - Pain: wrist pain - tylenol PRN - splint as tolerated - morphine 2mg IV PRN - Dysphagia: - speech following - aspiration precautions - Nausea/vomiting: yesterday with large emesis - zofran PRN Emotional/psychological: Acute encephalopathy: - maintain normal routines - haldol if severe agitation Advanced Care Planning: Is patient decisional?: No Code Status: DNR/DNI- confirmed with daughter today MD GARRISON: Daughter Cary is proxy Plan: Family feels Han would not want life prolongation in his current state. They would like to make sure he is comfortable and are interested in hospice care. [facility] per family request for possible GIP. 09/05/17 14:39 Subjective: sleeping, opens eyes to name Objective: Social History: . Has 1 daughter local and involved. Used to enjoy making things especially model steam trains. 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 Medication list reviewed ROS: General: fatigue, weakness, weight loss ENT: dysphagia Resp: negative GI: poor appetite, nausea : urinary retention MS: wrist pain Skin: negative Neuro: negative Psych: agitation, confusion Functional assessment: PPS: 30% Functional status: dependent on ADLs, IADLs Vital Signs Temp Pulse Resp BP Pulse Ox 36.4 C 83 18 120/64 99 09/05/17 12:00 09/05/17 12:00 09/05/17 12:00 09/05/17 12:00 09/05/17 12:00 Laboratory Results 09/03/17 05:44 09/05/17 04:14 09/04/17 09/05/17 09/06/17 05:59 05:59 05:59 Intake Total 118 520 Output Total 501 Balance 118 19 Physical Exam - Physical Exam General Appearance: no apparent distress, other (sleeping) Skin: normal color, warm/dry Extremities: No pedal edema Neuro/Psych: other (awakens to name, does not engage in conversation) ICD10 Worksheet Patient Problems: Problems Problem Status Onset Left wrist fracture Acute Palliative care encounter Acute Pneumonia Acute SINA (acute kidney injury) Acute Fall Acute Generalized weakness Acute Pyelonephritis, acute Acute - ICD10 Problem Qualifiers (1) Palliative care encounter
--- NOTE | 2017-09-05 16:59 | ASMTCMCOM ---
CM Note CM Note Notes: SWer and Palliative Care COMMERCIAL REAL ESTATE APPRAISER met w/ Pt's daughter Cary, granddaughter Yessica and Yessica's friend Jl in 2N Conference Room for a Palliative Care consult today to discuss Pt's medical situation and their desires for his plan of care. Discussed Pt's medical status. Family sad and tearful, but want Pt to be comfortable and state that he would not want extensive medical interventions at this time near the end of his life. Family wants to move to comfort care and to change code status to DNR. Pt. may be eligible for inpatient hospice. Instructed SWer to coordinate referral to [facility] for consult for admission into inpatient care center. Sent referral via [employer]. [facility] accepted referral. Plans to meet Cary at [facility] tomorrow, Wednesday 09/06. No time given. SWer called Cary to let her know about [facility] coming tomorrow to [facility], but gave her [facility] number to get a better idea about the time they will be coming. Coordinated w/ 2W SHEBA. Date Signed: 09/05/2017 04:58 PM Electronically Signed By:Milagro Gutierrez LCSW
[2017-09-05] MEDS: DILTIAZEM 30 MG TAB PO SCH (17:57)
[2017-09-05] MEDS: clonazePAM 0.5 MG TAB PO SCH ×2 (17:58→21:11)
[2017-09-05] MEDS: ESCITALOPRAM OXALATE 10 MG TAB PO SCH (17:58)
[2017-09-05] MEDS: FINASTERIDE 5 MG TAB PO SCH (17:59)
[2017-09-05] MEDS: MELATONIN 3 MG TAB PO SCH (21:11)
[2017-09-06] MEDS: PIPERACILLIN/TAZO 4.5 GM/DEX 100 ML IV SCH (06:06)
[2017-09-06] MEDS: clonazePAM 0.5 MG TAB PO SCH (08:16)
[2017-09-06] MEDS: ESCITALOPRAM OXALATE 10 MG TAB PO SCH (08:17)
[2017-09-06] MEDS: FINASTERIDE 5 MG TAB PO SCH (08:17)
[2017-09-06] MEDS ORDERED: NS 1,000 ML IV ONE (08:26)
[2017-09-06] MEDS: TIOTROPIUM INHALER 18 MCG/DOSE 5 DOSE/MDI IH SCH (08:54)
--- NOTE | 2017-09-06 13:40 | ASMTCMCOM ---
CM Note CM Note Notes: TANK Tenorio with [facility] here to see patient and daughter Cary today. Per Coby, patient does not qualify for inpatient hospice but does qualify for hospice at a SNF. Cary is ok with this plan. I sent referrals to a few SNF near her home in [place]; we will have to wait and see which ones accept patient's insurance. [facility] is happy to follow patient at whatever facility he goes to. Current CM Discharge plan: SNF w hospice Date Signed: 09/06/2017 01:39 PM Electronically Signed By:Kay Tinoco RN
--- NOTE | 2017-09-06 17:15 | HOSPPROG ---
Hospitalist Progress Note Assessment/Plan: Patient is a 77-year-old male who resides at [facility]. # Goals of care - hospice consulting today # right upper lobe infiltrate possible aspiration pneumonia- CXR (personally reviewed and interpreted) left sided infiltrate/atelectasis oxygen saturations 93% on RA - continue antibiotics # tachycardia resolved dc meds given above # dementia with possible worsening encephalopathy ethics evaluated patient and noted he is not decisional; for now his daughter is medical power of [facility] hospice # deaf- web interface developer is at the bedside. The patient does not interact much with her # hypernatremia, hypokalemia - dc lyte protocol - encourage PO # left wrist fracture-swelling noted, he is moving it around w/out grimacing - cont scheduled tylenol # anemia- HCT 32 # hypertension- dc meds # dispo - suspect to hospice in the next few days I have discussed the case with RN - focusing on patients comfort today - taking little PO Subjective: denied pain Objective: Vital Signs Temp Pulse Resp BP Pulse Ox 36.6 C 74 14 144/78 H 93 09/06/17 11:02 09/06/17 11:02 09/06/17 11:02 09/06/17 11:02 09/06/17 11:02 Laboratory Results 09/03/17 05:44 09/05/17 04:14 09/05/17 09/06/17 09/07/17 05:59 05:59 05:59 Intake Total 520 1900 Output Total 501 1250 Balance 19 650 - Physical Exam Constitutional: no apparent distress Eyes: anicteric sclera Ears, Nose, Mouth, Throat: moist mucous membranes Cardiovascular: regular rate and rhythym, systolic murmur Respiratory: no respiratory distress Gastrointestinal: normoactive bowel sounds Genitourinary: no bladder fullness Skin: warm Musculoskeletal: No asymmetric calves Neurologic: No AAOx3 Psychiatric: depressed Lymph, Heme, Immunologic: no cervical LAD ICD10 Worksheet Patient Problems: Problems Problem Status Onset Left wrist fracture Acute Palliative care encounter Acute Pneumonia Acute SINA (acute kidney injury) Acute Fall Acute Generalized weakness Acute Pyelonephritis, acute Acute
[2017-09-06 23:12] VITALS: RESP 16
[2017-09-06] MEDS ORDERED: LORazepam 2 MG/ML INJ IVP PRN (23:39)
[2017-09-07] MEDS: clonazePAM 0.5 MG TAB PO SCH ×3 (02:36→21:24)
[2017-09-07] MEDS: MELATONIN 3 MG TAB PO SCH ×2 (02:36→21:20)
[2017-09-07] MEDS: FINASTERIDE 5 MG TAB PO SCH (08:36)
[2017-09-07] MEDS: ACETAMINOPHEN 325 MG TAB PO PRN (08:36)
[2017-09-07] MEDS: ESCITALOPRAM OXALATE 10 MG TAB PO SCH (08:36)
[2017-09-07] MEDS: TIOTROPIUM INHALER 18 MCG/DOSE 5 DOSE/MDI IH SCH (08:50)
--- NOTE | 2017-09-07 13:45 | HOSPPROG ---
Hospitalist Progress Note Assessment/Plan: Patient is a 77-year-old male who resides at [facility]. 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 # hypernatremia, hypokalemia- electrolytes normalized - dc lyte protocol - encourage PO # left wrist fracture-Wrist XR (personally reviewed and interpreted) displaced fractures noted stable swelling noted, he is moving w/out grimacing - cont scheduled tylenol # anemia- HCT 32 # hypertension- dc meds # dispo - suspect to hospice in the next few days I have discussed the case with RN - will dc antibiotics today - avoiding restraints if able Subjective: denies pain Objective: Vital Signs Temp Pulse Resp BP Pulse Ox 36.5 C 72 16 167/86 H 88 L 09/07/17 10:44 09/07/17 10:44 09/07/17 10:44 09/07/17 10:44 09/07/17 10:44 Laboratory Results 09/03/17 05:44 09/05/17 04:14 09/06/17 09/07/17 09/08/17 05:59 05:59 05:59 Intake Total 1900 1120 550 Output Total 1250 1250 800 Balance 650 -130 -250 - Physical Exam Constitutional: cachectic Ears, Nose, Mouth, Throat: dry mucous membranes Cardiovascular: regular rate and rhythym, systolic murmur Respiratory: no respiratory distress Gastrointestinal: normoactive bowel sounds Genitourinary: no bladder fullness Skin: warm Musculoskeletal: No asymmetric calves Neurologic: No AAOx3 Psychiatric: depressed Lymph, Heme, Immunologic: no cervical LAD ICD10 Worksheet Patient Problems: Problems Problem Status Onset Left wrist fracture Acute Palliative care encounter Acute Pneumonia Acute SINA (acute kidney injury) Acute Fall Acute Generalized weakness Acute Pyelonephritis, acute Acute
[2017-09-07 19:04] VITALS: TEMP 98.5
[2017-09-07 21:50] VITALS: BP 140/94; PULSE 59; O2SAT 91
[2017-09-08] MEDS: clonazePAM 0.5 MG TAB PO SCH (10:19)
[2017-09-08] MEDS: ESCITALOPRAM OXALATE 10 MG TAB PO SCH (10:19)
[2017-09-08] MEDS: FINASTERIDE 5 MG TAB PO SCH (10:19)
[2017-09-08] MEDS: TIOTROPIUM INHALER 18 MCG/DOSE 5 DOSE/MDI IH SCH (10:29)
--- NOTE | 2017-09-08 15:21 | PDIAF ---
- Diagnosis Diagnosis: dementia/pna Code Status: Do Not Resuscitate - Medication Management Discharge Medications: Medications to Continue on Transfer Albuterol [Proventil Inhaler HFA (*)] 2 puffs IH Q4H PRN 06/12/17 [Last Taken Unknown] Cholecalciferol Vit D3 [Vitamin D3 (*)] 1,000 units PO DAILY 06/12/17 [Last Taken 08/30/17] Escitalopram Oxalate [Lexapro 10 MG] 10 mg PO DAILY 06/12/17 [Last Taken ] Finasteride [Proscar 5 MG (*)] 5 mg PO DAILY 06/12/17 [Last Taken 08/30/17] SUMAtriptan [Imitrex 50 MG (*)] 50 mg PO Q23H PRN 06/12/17 [Last Taken Unknown] Sennosides [Senokot] 1 each PO BID PRN 06/12/17 [Last Taken Unknown] clonazePAM [Klonopin (*)] 0.5 mg PO BID 06/12/17 [Last Taken 08/30/17] Melatonin [Melatonin 3 MG (*)] 3 mg PO HS #30 tab 07/11/17 [Last Taken 08/30/17] Acetaminophen [Tylenol 325mg (*)] 650 mg PO Q6HRS PRN 08/31/17 [Last Taken Unknown] Tiotropium Inhaler [Spiriva Handihaler] 18 mcg IH DAILY 08/31/17 [Last Taken 02/09] Discharge Medications: Refer to the Discharge Home Medication list for PRN reason. - Orders Services needed: Home Care, Registered Nurse Home Care Face to Face: I certify that this patient was under my care and that I had the required osae-ty-ivkg encounter meeting the encounter requirements on the discharge day. My findings support the fact that the patient is homebound as defined in Home Care Face to Face Continued: CMS Chapter 7 Medicare Benefits Manual 30.1.1 , The condition of the patient is such that there exists a normal inability to leave home and consequently, leaving home would require a considerable and taxing effort. Diet Recommendation: no restrictions on diet Diet Texture: Dysphagia 2 - Mechanically Altered - Chopped, Ground, Dysphagia 1 - Pureed, Meds Crushed in Puree Additional: hospice eval and treat - Follow Up Care Current Providers and Referrals: Patient,NotPresent [Unknown] - As per Instructions
--- NOTE | 2017-09-08 15:39 | ASMTCMCOM ---
CM Note CM Note Notes: Patient discharged back to where he will receive hospice services from [facility]. Final orders via allscripts. PCS form done. He is to be transported via stretcher, Attempted to inform daughter Cary, no answer. CM call back number left. RN aware to call report, CM available should other needs arise. Date Signed: 09/08/2017 03:38 PM Electronically Signed By:Erkia Fletcher RN
--- NOTE | 2017-09-08 18:53 | GDS ---
[f rep st] DISCHARGE SUMMARY DISCHARGE DIAGNOSES: Include: 1. Congenital deafness. 2. Suspected aspiration pneumonia. 3. Dementia. 4. Hypernatremia. 5. Severe protein-calorie malnutrition. CONSULTATIVE SERVICES: Include: 1. Hospice. 2. Palliative Care. HOSPITAL COURSE: 1. Weakness. Patient was noted to be in a severe state of deconditioning and cachexia. Palliative Care and Hospice were consulted at the request of family and the decision was made to shift care to [facility]. Patient is being discharged back to [facility] on Hospice care through [facility]. 2. Suspected aspiration pneumonia. Patient was noted on chest imaging to have a lower lobe infiltra te, was initiated empirically on IV antibiotics. These were transitioned to p.o. Patient completed a 5-day course of antibiotics without resulting fever, increased leukocytosis, or peripheral markers of infection. Patient was uncomfortable swallowing the antibiotic tablets and the decision was made to terminate therapy at 5 days as suspicion for brewing pneumonia was quite low item. 3. Congenital deafness. A marketing designer was used throughout the patient's stay. 4. Acute urinary obstruction. Patient had a Martinez catheter placed, which remains in place at the ti me of disposition and should remain so ongoing, consistent with his wishes for comfort and hospice ca re. MEDICATIONS AT THE TIME OF TRANSFER: Please reference the med rec printed on 09/08/2017. FOLLOWUP APPOINTMENTS: Patient is being discharged to hospice care at [facility]. I spent greater than 30 minutes in the planning and coordination of this discharge. /[id number]/MODL
== END 2017-09-08 17:17 | DRG 177 ==
LOC: EDUNIT# → F3N 15:29 → F3E 09-03 12:00 → F2W 09-04 12:49 → F3E 09-07 21:41
PROVIDERS: ADMIT Internal Medicine; ATTEND Internal Medicine
PROC: 0T9B8ZZ Drainage of Bladder, Via Natural or Artificial Opening Endoscopic (ICD-10-PCS; principal; 2017-09-05)
DX: J69.0 Pneumonitis due to inhalation of food and vomit (principal); S62.102A Fracture of unspecified carpal bone, left wrist, initial encounter for closed fracture; W19.XXXA Unspecified fall, initial encounter; Y92.129 Unspecified place in nursing home as the place of occurrence of the external cause; G93.40 Encephalopathy, unspecified; E87.0 Hyperosmolality and hypernatremia; E87.6 Hypokalemia; N40.1 Benign prostatic hyperplasia with lower urinary tract symptoms; R33.8 Other retention of urine; E43 Unspecified severe protein-calorie malnutrition; Z68.1 Body mass index [BMI] 19.9 or less, adult; N13.8 Other obstructive and reflux uropathy; J44.9 Chronic obstructive pulmonary disease, unspecified; F03.90 Unspecified dementia, unspecified severity, without behavioral disturbance, psychotic disturbance, mood disturbance, and anxiety; K21.9 Gastro-esophageal reflux disease without esophagitis; R00.1 Bradycardia, unspecified; H90.5 Unspecified sensorineural hearing loss; I10 Essential (primary) hypertension; Z51.5 Encounter for palliative care
CPT/HCPCS: 92526-GN; 92610-GN; 92611-GN; 97166-GO; G8987-GO-CJ; G8988-GO-CJ; G8996-GN-CJ; G8996-GN-CK; G8997-GN-CJ; G8998-GN-CJ; J1650; J1956; J2060; J2405; J2543; J3475